=== PATIENT | male | born 1965 | race Caucasian/White ===

== ENCOUNTER → 2017-01-02 | Day surgery (SDC) | payer OTHER ==
[~2017-01-02] VITALS: Ht 182.9 cm; Wt 71.9 kg
[~2017-01-02] MED LIST: *MEPERIDINE 25 MG INJ VIAL PERIprocedural Use ONLY ONE; BACITRACIN TOP OINT 15 GM TUBE ONE; BUPIVACAINE HCL PF 0.5% 30 ML VIAL ONE; CHLORHEXIDINE GLUCONATE 2 % 1 PACK (2 CLOTHS) TOPICAL PRN; DO NOT ADM ANY ANTICOAGULANT DRUGS PRN; INSULIN HUMAN REGULAR 1,000 UNITS/10 ML VIAL SQ PRN; LACTATED RINGER'S 1000 ML IV PRN; LIDOCAINE 0.5%/EPINEPHrine 1:200,000 SOLN 50 ML VIAL ONE; METOPROLOL TARTRATE 25 MG TAB PO PRN; ONDANSETRON HCL 4 MG/2 ML VIAL IV PUSH ONE; POVIDONE IODINE 5% (ANTISEPSIS KIT) 4 APPLICATIONS EACH NARE PRN; PROPOFOL 200 MG/20 ML AMP IV ONE; SODIUM CHLORID 0.9% 500 ML IV PRN
[2017-01-02 10:28] VITALS: BP 104/59; PULSE 81; RESP 18; TEMP 98.3; O2SAT 94
--- NOTE | 2017-01-02 11:18 | EKG ---
Date Performed: 01/02/2017 Time Performed: 06:52:14 PTAGE: 51 years EKG: Sinus rhythm NORMAL ECG NO PREVIOUS TRACING DOCTOR: Timothy Titus Interpretating Date/Time 01/02/2017 11:17:51
--- NOTE | 2017-01-02 18:42 | MP ---
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 PROCEDURE Vinnie-Cut needle biopsies, probably 20 cores, and excisional biopsies of condyloma acuminata SURGEON Dr. Juan Longo ESTIMATED BLOOD LOSS Minimal. OPERATIVE FINDINGS This patient has a massive condyloma for many, many years that has been neglected. The patient underwent almost full excision by me about a year ago at 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 The patient has been lost to followup for the last year to two since that time and recently came back for evaluation. He did not have any insurance. I recommended that he see radiation therapy as this appears to be a large carcinoma of the perineum involving the base of the scrotum and groin and anterior to the anal canal. Radiation therapy, specifically Dr. Belen Connor, saw him and recommended that we get deeper biopsies to ascertain whether this is indeed a carcinoma. For this reason, biopsy was recommended. I did multiple cores of Vinnie-Cut needle biopsy and some excisional biopsies of the surface as well. OPERATIVE TECHNIQUE The patient was placed on the table in the lithotomy position and, after adequate LMA anesthesia, the area was prepped and draped in usual manner and multiple cores of Vinnie-Cut biopsies were taken. This is a very firm, hard lesion that appears to be an invasive carcinoma. Excisional superficial biopsies were taken as well and sent separately. At termination of procedure, Monsel's solution was placed and dressings were applied. Sponge, needle and instrument counts were reported as correct. Estimated blood loss was minimal. The patient tolerated the procedure well and left the operating room in good condition. MD JAVED Ellison/ /9:19 AM /6:33 PM
== END | disposition home or self-care (01) ==
LOC: HSDC 06:33
PROVIDERS: ATTEND Colon & Rectal Surgery
DX: D01.3 Carcinoma in situ of anus and anal canal (principal); A63.0 Anogenital (venereal) warts; Z01.810 Encounter for preprocedural cardiovascular examination
CPT/HCPCS: 00902; 46922; 88305; 93005; J2175; J2405; J3010; J7120; 88304

== ENCOUNTER → 2017-01-26 | Day surgery (SDC) | payer OTHER ==
[~2017-01-26] MED LIST changes: -*MEPERIDINE 25 MG INJ VIAL PERIprocedural Use ONLY ONE; -BACITRACIN TOP OINT 15 GM TUBE ONE; -BUPIVACAINE HCL PF 0.5% 30 ML VIAL ONE; -CHLORHEXIDINE GLUCONATE 2 % 1 PACK (2 CLOTHS) TOPICAL PRN; -DO NOT ADM ANY ANTICOAGULANT DRUGS PRN; -INSULIN HUMAN REGULAR 1,000 UNITS/10 ML VIAL SQ PRN; +LACTATED RINGER'S 1000 ML INJ 1,000 ML ONE; -LACTATED RINGER'S 1000 ML IV PRN; -LIDOCAINE 0.5%/EPINEPHrine 1:200,000 SOLN 50 ML VIAL ONE; -METOPROLOL TARTRATE 25 MG TAB PO PRN; -ONDANSETRON HCL 4 MG/2 ML VIAL IV PUSH ONE; -POVIDONE IODINE 5% (ANTISEPSIS KIT) 4 APPLICATIONS EACH NARE PRN; -SODIUM CHLORID 0.9% 500 ML IV PRN
--- NOTE | 2017-01-26 11:43 | GIPROC ---
[facility] [address] [facility], [address] EGD PROCEDURE REPORT EXAM DATE: 01/26/2017 PATIENT NAME: Sam Hancock MR #: [id number] BIRTHDATE: 1965 ATTENDING: Eva Hall MD ORDER #: [id number] MERCURY PURIFIER: Alirio Grove RN STATUS: outpatient INDICATIONS: The patient is a 51 yr old male here for an EGD due to abnormal PET scan of the GI tract PROCEDURE PERFORMED: EGD w/ biopsy MEDICATIONS: None and Per Anesthesia. TOPICAL ANESTHETIC: CONSENT: The patient understands the risks and benefits of the procedure and understands that these risks include, but are not limited to: sedation, allergic reaction, infection, perforation and/or bleeding. Alternative means of evaluation and treatment include, among others: physical exam, x-rays, and/or surgical intervention. The patient elects to proceed with this endoscopic procedure. medical equipment was checked for proper function. Hand hygiene and appropriate measures for infection prevention was taken. After the risks, benefits and alternatives of the procedure were thoroughly explained, Informed consent was verified, confirmed and timeout was successfully executed by the treatment team. The patient was anesthetized with topical anesthesia and the EC-[id number] ([id number]) endoscope was introduced through the mouth and advanced to the second portion of the duodenum. Retroflexed views revealed a hiatal hernia The gastroscope was then slowly withdrawn and removed. ESOPHAGUS: There was LA Class C esophagitis noted. Multiple biopsies were performed using cold forceps. Sample sent for histology. STOMACH: There was mild gastritis in the gastric antrum. DUODENUM: The duodenal mucosa appeared normal in the bulb and second portion of the duodenum. ADVERSE EVENTS: There were no complications. IMPRESSIONS: 1. There was LA Class C esophagitis noted; multiple biopsies were performed 2. There was mild gastritis in the gastric antrum 3. Normal duodenal mucosa in the bulb and second portion of the duodenum 4. Retroflexed views revealed a hiatal hernia RECOMMENDATIONS: 1. Await biopsy results. Biopsy results will not be ready for 7-10 days. If you don't hear from us in two weeks, call our office for biopsy results. 2. Anti-reflux regimen 3. Prilosec 20 mg po bid PATIENT CONDITION: stable DISPOSITION: Home REPEAT EXAM: Return 8 weeks EGD pending biopsy results Eva Hall MD eSigned: Eva Hall MD 01/26/2017 11:43 AM cc: Nancy Swift [facility] Betsy Peace M.D. PATIENT NAME: Dae Hancocktobias Almazan MR#: [id number]
== END | disposition home or self-care (01) ==
LOC: ESDC 09:59
PROVIDERS: ATTEND Internal Medicine Gastroenterology
DX: R93.3 Abnormal findings on diagnostic imaging of other parts of digestive tract (principal); K20.9 Esophagitis, unspecified; K44.9 Diaphragmatic hernia without obstruction or gangrene; K29.70 Gastritis, unspecified, without bleeding
CPT/HCPCS: 00740; 43239; 88305; 88312; J7120

== ENCOUNTER 2017-01-28 09:56 | Day surgery (SDC) | payer OTHER ==
[2017-01-28 10:16] VITALS: BP 102/66; PULSE 81; RESP 18; TEMP 98; O2SAT 96
[2017-01-28] MEDS ORDERED: LIDOCAINE HCL 1% 20 ML VIAL ONE (11:08)
[2017-01-28 11:10] VITALS: BP 89/56; PULSE 74; RESP 20; TEMP 97.4; O2SAT 97
--- NOTE | 2017-01-28 11:17 | RADRPT ---
EXAM DATE/TIME: 01/28/2017 10:21 [place] COMPARISON: No previous studies available for comparison. EXTERNAL COMPARISON: [facility], PET/CT - TUMOR METABOLISM, Dec 19 2016. INDICATIONS : Enlarged left inguinal canal lymph node. MEDICAL HISTORY : Enlarged left inguinal canal lymph node. Anal cancer. Inguinal hernia. SURGICAL HISTORY : Hernia repair. Colonoscopy. ENCOUNTER: Initial ACUITY: 2 weeks PAIN SCORE: 0/10 LOCATION: Left leg. ORGAN: Left lymph node inguinal canal. SPECIMENS: Four core specimen(s) submitted for pathologic evaluation. DEVICE: 18 gauge Temno needle Post procedure scanning reveals no hematoma or other complication. The possibility does exist that the tissue obtained will be non-diagnostic. If the sample is non-satnam gnostic a repeat biopsy or surgical biopsy may need to be performed. TECHNIQUE: 1. Ultrasound guidance for needle biopsy. 2. Needle biopsy. The risks, benefits and alternatives to the procedure were explained and verbal and written consent w as obtained. The site was prepped in sterile fashion. Full sterile technique was used, including ca p, mask, sterile gloves and gown and a large sterile sheet. Hand hygiene and 2% chlorhexidine and/or betadine/alcohol prep was utilized per protocol for cutaneous antisepsis. The skin and subcutaneous tissues were infiltrated with local anesthetic solution. Sterile gel and sterile probe cover were u tilized for ultrasound guidance. With the patient on the ultrasound table, images were obtained. A needle was advanced into the identified target and the number of specimens as above obtained and kathleen bmitted for pathologic evaluation. The patient tolerated the procedure well and left the ultrasound suite in stable condition. CONCLUSION: Uncomplicated ultrasound guided needle biopsy. Dajuan Granda MD on January 28, 2017 at 11:16 Board Certified Radiologist. This report was verified electronically.
[2017-01-28 11:25] VITALS: BP 101/67; PULSE 75; RESP 20; O2SAT 100
== END 2017-01-28 11:36 | disposition home or self-care (01) ==
LOC: HRIP 09:56 → HRAD 09:56
PROVIDERS: ATTEND Internal Medicine
DX: R59.0 Localized enlarged lymph nodes (principal)
CPT/HCPCS: 38505; 76942; 88305

== ENCOUNTER 2017-04-16 10:58 | Inpatient (IN) | payer OTHER ==
[~2017-04-16] VITALS: Ht 182.9 cm; Wt 68.8 kg
[~2017-04-16 10:58] MED LIST changes: +IBUP200T47 PO; -LACTATED RINGER'S 1000 ML INJ 1,000 ML ONE; +PERC5TAB12 PO; -PROPOFOL 200 MG/20 ML AMP IV ONE
[2017-04-16] MEDS ORDERED: SODIUM CHLORID 0.9% 500 ML IV PRN (11:30)
[2017-04-16] MEDS ORDERED: CHLORHEXIDINE GLUCONATE 2 % 1 PACK (2 CLOTHS) TOPICAL PRN (11:30)
[2017-04-16] MEDS ORDERED: METOPROLOL TARTRATE 25 MG TAB PO PRN (11:30)
[2017-04-16] MEDS ORDERED: POVIDONE IODINE 5% (ANTISEPSIS KIT) 4 APPLICATIONS EACH NARE PRN (11:30)
[2017-04-16] MEDS ORDERED: LACTATED RINGER'S 1000 ML IV PRN (11:30)
[2017-04-16] MEDS ORDERED: ALVIMOPAN 12 MG CAPSULE - On Call PO SCH (11:30)
[2017-04-16 12:19] LABS: AUTOMATED NEUTROPHIL # 26.9 TH/MM3 (1.8-7.7); BASOPHIL # 0.2 TH/MM3 (0-0.2); BASOPHIL % 0.6 % (0.0-2.0); EOSINOPHIL # 0.9 TH/MM3 (0-0.4); EOSINOPHIL % 2.7 % (0.0-4.0); HEMATOCRIT 38.6 % (39.0-51.0); LYMPH % 4.7 % (9.0-44.0); LYMPHOCYTE # 1.5 TH/MM3 (1.0-4.8); MEAN CORPUSCULAR HEMOGLOBIN 29.2 PG (27.0-34.0); MEAN CORPUSCULAR HGB CONC 33.6 % (32.0-36.0); MONO % 8.1 % (0.0-8.0); MONOCYTE # 2.6 TH/MM3 (0-0.9); NEUT % 83.9 % (16.0-70.0); PLATELET COUNT 443 TH/MM3 (150-450); RED BLOOD COUNT 4.44 MIL/MM3 (4.50-5.90)
[2017-04-16 12:53] LABS: BANDS 7 % (0-6); BASOPHILS 1 % (0-2); LYMPHOCYTES 3 % (9-44); MONOCYTES 6 % (0-8); NEUTROPHIL # MANUAL DIFF 28.2 TH/MM3 (1.8-7.7); POLYS (SEG NEUTROPHILS) 81 % (16-70)
[2017-04-16 12:55] LABS: HYPERSEGMENTED POLYS 1+ (NORMAL); TOXIC VACUOLATION PRESENT (NONE SEEN)
[2017-04-16] MEDS ORDERED: BUPIVACAINE/EPINEPHRINE 0.25% PF 30 ML VIAL ONE (13:18)
[2017-04-16] MEDS ORDERED: BACITRACIN TOP OINT 15 GM TUBE ONE (13:18)
[2017-04-16] MEDS ORDERED: ceFAZolin 2 GM PREMIX 50 ML ONE (14:13)
[2017-04-16] MEDS ORDERED: HYDROmorphone HCL PF 2 MG/ML VIAL ONE (14:24)
[2017-04-16] MEDS ORDERED: LIDOCAINE 2%/EPINEPHrine PF 1:200,000 20ML SDV ONE (14:32)
[2017-04-16] MEDS ORDERED: *RESP: ALBUTEROL 2.5 MG/3 ML NEB (PRN) PERIprocedural Use ONLY NEB ONE (15:30)
[2017-04-16] MEDS ORDERED: *MEPERIDINE 25 MG INJ VIAL PERIprocedural Use ONLY ONE (15:31)
[2017-04-16] MEDS ORDERED: HYDROmorphone HCL PCA 6 MG/30 ML IV ONE (15:31)
[2017-04-16] MEDS: D5-LR + KCL 20 MEQ INJ 1,000 ML IV SCH (15:43)
[2017-04-16] MEDS ORDERED: D5-LR + KCL 20 MEQ INJ 1,000 ML ONE (15:43)
[2017-04-16] MEDS ORDERED: DO NOT ADM ANY ANTICOAGULANT DRUGS PRN (16:45)
[2017-04-16] MEDS ORDERED: HYDROmorphone HCL PCA 6 MG/30 ML IV SCH (17:15)
[2017-04-16] MEDS ORDERED: NALOXONE HCL 0.4 MG/ML AMP IV PUSH PRN (17:15)
[2017-04-16 18:22] VITALS: BP 98/53; PULSE 87; RESP 19; TEMP 96.8; O2SAT 90
[2017-04-16] MEDS: PCA - TOTAL MG DILAUDID DELIVERED PER SHIFT SCH (20:44)
[2017-04-16] MEDS: ceFAZolin 1,000 MG/NS 100 ML IV SCH ×2 (20:44)
[2017-04-16] MEDS ORDERED: NICOTINE 21 MG/24 HR PATCH T-DERMAL SCH (21:45)
[2017-04-17] VITALS (7 sets, daily range): BP systolic 88–99; BP diastolic 51–63; PULSE 64–80; RESP 16–20; TEMP 97.1–98; O2SAT 93–97
[2017-04-17] MEDS: D5-LR + KCL 20 MEQ INJ 1,000 ML IV SCH ×2 (02:15→12:29)
[2017-04-17] MEDS: PCA - TOTAL MG DILAUDID DELIVERED PER SHIFT SCH ×3 (06:00→20:32)
[2017-04-17] MEDS: ceFAZolin 1,000 MG/NS 100 ML IV SCH ×6 (06:23→20:32)
[2017-04-17] MEDS ORDERED: INFLUENZA VIRUS VACCINE (QUADRIVALENT) 0.5 ML SYR IM ONE (10:00)
[2017-04-17] MEDS ORDERED: PNEUMOCOCCAL POLYVALENT INJ 25 MCG/0.5 ML SYR IM ONE (10:00)
[2017-04-17] MEDS: NICOTINE 21 MG/24 HR PATCH T-DERMAL SCH (10:29)
[2017-04-17] MEDS: ALVIMOPAN 12 MG CAPSULE - Post-op dosing PO SCH ×2 (10:29→20:31)
[2017-04-17 11:41] LABS: AUTOMATED NEUTROPHIL # 16.2 TH/MM3 (1.8-7.7); BASOPHIL % 0.1 % (0.0-2.0); EOSINOPHIL # 0.1 TH/MM3 (0-0.4); EOSINOPHIL % 0.4 % (0.0-4.0); HEMOGLOBIN 10.6 GM/DL (13.0-17.0); LYMPH % 8.7 % (9.0-44.0); LYMPHOCYTE # 1.7 TH/MM3 (1.0-4.8); MEAN CELL VOLUME 87.4 FL (80.0-100.0); MEAN CORPUSCULAR HEMOGLOBIN 29.9 PG (27.0-34.0); MEAN CORPUSCULAR HGB CONC 34.2 % (32.0-36.0); MEAN PLATELET VOLUME 7.2 FL (7.0-11.0); MONO % 8.5 % (0.0-8.0); MONOCYTE # 1.7 TH/MM3 (0-0.9); NEUT % 82.3 % (16.0-70.0); PLATELET COUNT 375 TH/MM3 (150-450); RED BLOOD COUNT 3.54 MIL/MM3 (4.50-5.90); WHITE BLOOD COUNT 19.7 TH/MM3 (4.0-11.0)
[2017-04-17 12:09] LABS: BICARBONATE 27.5 MEQ/L (21.0-32.0); CALCIUM 8.4 MG/DL (8.5-10.1); CREATININE 0.5 MG/DL (0.60-1.30)
--- NOTE | 2017-04-17 15:44 | HHI.PR ---
Subjective Remarks Pain controlled. Large wound. Dressings changed by me. Objective Vital Signs Date Time Temp Pulse Resp B/P (MAP) Pulse Ox O2 Delivery O2 Flow Rate FiO2 04/17/17 14:00 16 04/17/17 12:00 97.8 68 16 95/52 (66) 96 04/17/17 08:00 97.2 64 16 88/52 (64) 96 04/17/17 06:00 20 04/17/17 00:42 97.7 78 20 99/53 (68) 96 04/17/17 00:12 93 Nasal Cannula 2.00 04/17/17 00:00 98.0 68 20 96/51 (66) 96 04/16/17 20:44 18 04/16/17 18:22 96.8 87 19 98/53 (68) 90 04/16/17 18:00 82 16 94/55 (68) 94 Nasal Cannula 2 04/16/17 17:30 98.0 82 16 94/55 (68) 94 Nasal Cannula 2 04/16/17 16:30 91 16 110/55 (73) 92 Nasal Cannula 2 04/16/17 16:15 96 16 123/58 (79) 94 Nasal Cannula 2 04/16/17 16:00 99 16 125/60 (81) 96 Nasal Cannula 2 04/16/17 15:45 103 16 129/60 (83) 96 Nasal Cannula 2 I/O 04/16/17 04/16/17 04/16/17 04/17/17 04/17/17 04/17/17 07:00 15:00 23:00 07:00 15:00 23:00 Intake Total 300 ml 1000 ml 1100 ml Output Total 325 ml Balance -25 ml 1000 ml 1100 ml Intake IV Total 100 ml 1000 ml 1100 ml Other 200 ml Output Urine Total 325 ml Result Diagram: 04/17/17 1100 04/17/17 1100 Objective Remarks VS-S Rectum: wide excision of deep Condyloma/possibe invasive Squamous cell Cancer. Redressed Assessment and Plan Assessment and Plan Stable POD#1 Admit Wound care Regular diet Await path Possible loop colostomy next week Iftikhar Longo MD Apr 17, 2017 15:44
[2017-04-17] MEDS: REMOVE OLD NICODERM (NICOTINE) PATCH T-DERMAL SCH (20:31)
[2017-04-18] VITALS (7 sets, daily range): BP systolic 90–110; BP diastolic 52–64; PULSE 74–90; RESP 17–20; TEMP 97.5–99.1; O2SAT 93–99
[2017-04-18] MEDS: ceFAZolin 1,000 MG/NS 100 ML IV SCH ×6 (05:02→21:42)
[2017-04-18] MEDS: PCA - TOTAL MG DILAUDID DELIVERED PER SHIFT SCH ×3 (05:02→21:43)
--- NOTE | 2017-04-18 10:01 | HHI.PR ---
Subjective Remarks C/R Surg POD #2 afebrile, VSS voiding to PO Objective - Vital Signs Date Time Temp Pulse Resp B/P (MAP) Pulse Ox O2 Delivery O2 Flow Rate FiO2 04/18/17 08:00 98.6 81 17 100/54 (69) 98 04/18/17 04:47 Nasal Cannula 2.00 Result Diagram: 04/17/17 1100 04/17/17 1100 Objective Remarks PE alert Abd - soft Rectal - clean dressing, min bleeding A/P Assessment and Plan Imp: cont wound care dc IVF PO Butch Aguayo MD Apr 18, 2017 10:01
[2017-04-18] MEDS: NICOTINE 21 MG/24 HR PATCH T-DERMAL SCH (10:08)
[2017-04-18] MEDS: ALVIMOPAN 12 MG CAPSULE - Post-op dosing PO SCH ×2 (10:08→21:42)
--- NOTE | 2017-04-18 18:00 | MP ---
cc: SHANTE LONGO DATE OF SURGERY 04/16/17 PREOPERATIVE DIAGNOSIS Massive condyloma of his perineum. POSTOPERATIVE DIAGNOSIS Massive condyloma of his perineum. PROCEDURE Partial excision of massive condyloma of perineum. ANESTHESIA General endotracheal SURGEON Dr. Juan Longo BIODIESEL PROCESSING TECHNICIAN Dr. Mitchell ESTIMATED BLOOD LOSS 50 ml. OPERATIVE FINDINGS This patient has had a condyloma of his perineum for many years. It is primarily anterior to the anal canal, but somewhat lateral and down in the groin region on both sides of the scrotum. He had excision by me about a year and a half ago at [facility]. At that time, the pathology report was reported as carcinoma in situ. The patient did not follow up well and came back a year later for reevaluation. At that time, we recommended re-excision. The patient did not have insurance. He had finally gotten some sort of the patient assistance at [facility] and has decided to have surgery. I spoke with plastic surgery about him and they agreed to see him but could not see him until April. The patient wanted to get something more definitive done before he loses any insurance coverage that he has. We could not send him to [facility] for further treatment and we referred him to Dr. Stefan Mejia and Dr. Jeri Peace for radiation therapy and chemotherapy. However, because it was not invasive carcinoma they could not do radiation therapy or chemotherapy to him. For this reason, excision of this lesion as much as possible was recommended. We did discuss colostomy and, while he does not want to have a colostomy, he will agree to it if absolutely necessary. I told him that we would try to excise this lesion since he was stooling all over it anyway. It would not be much worse having this excised and still stooling from his rectum. Preoperatively, he had a PET scan and a CT scan that I reviewed with Dr. Floyd Gavin from radiology and it showed that the lesion did abut the urethra as well as the base of the prostate and Dr. Gavin felt that this was most likely malignant even though all biopsies two times have not shown any invasive carcinoma. Nevertheless, we brought him in today for further debridement and excisional biopsy and possible interval colostomy. At surgery, the majority of the lesion was excised from the lateral buttocks region in the subcutaneous plane and removed. The central portion was left which was mostly along the urethra and up to the prostate gland. Most of the lateral areas as mentioned were excised and this included up to the anterior anal canal including some superficial external sphincter as well as posteriorly some anal coccygeal muscle. OPERATIVE TECHNIQUE The patient was placed on the table in the supine position. After adequate general endotracheal anesthesia, a Delacruz catheter was placed. The patient was placed prone on the operating table and the buttocks were taped apart. The area was prepped and draped in usual manner and we used electrocautery to excise this massive condyloma bilaterally including some skin and subcutaneous tissue of the buttocks bilaterally down into the ischiorectal fat. We did not go up along the rectum, but anteriorly we went right to the anoderm and excised it also around the left side of the anus and posteriorly. Anteriorly and in the midline it was excised from around the urethral area, but the urethra was not entered and a good portion in the central portion was left. The groin area was excised as much as possible in the prone position. Further debridement will require lithotomy position. Nevertheless, during this hemostasis was maintained throughout with electrocautery and, once we excised the portion that we were going to excise which included a substantial part of this condyloma probably more than 80%, Monsel's solution was placed on the wounds after hemostasis was obtained with electrocautery and then the area was dressed with 4x4s and ABDs. Sponge, needle and instrument counts were reported as correct. Estimated blood loss was 50 mL. The patient tolerated the procedure well and left the operating room in good condition. REPORT This area, my office in a copy to Dr. Antonio Cowart Dr. Temperature of 1000. INDICATION Thank you MD JAVED Ellison/ /8:38 PM /5:31 PM
[2017-04-18] MEDS: REMOVE OLD NICODERM (NICOTINE) PATCH T-DERMAL SCH (21:00)
[2017-04-19 00:17] VITALS: BP 106/63; PULSE 84; RESP 20; TEMP 98.6; O2SAT 98
[2017-04-19 04:13] VITALS: BP 96/58; PULSE 79; RESP 18; TEMP 98.7; O2SAT 98
[2017-04-19] MEDS: PCA - TOTAL MG DILAUDID DELIVERED PER SHIFT SCH (05:12)
[2017-04-19] MEDS: ceFAZolin 1,000 MG/NS 100 ML IV SCH ×6 (05:12→21:19)
[2017-04-19] MEDS: D5-LR + KCL 20 MEQ INJ 1,000 ML IV SCH ×2 (05:13→15:00)
[2017-04-19 08:00] VITALS: BP 96/55; PULSE 77; RESP 18; TEMP 98.5; O2SAT 96
[2017-04-19] MEDS: NICOTINE 21 MG/24 HR PATCH T-DERMAL SCH (08:14)
[2017-04-19] MEDS: ALVIMOPAN 12 MG CAPSULE - Post-op dosing PO SCH ×2 (08:14→21:19)
[2017-04-19] MEDS: REMOVE OLD NICODERM (NICOTINE) PATCH T-DERMAL SCH (08:15)
--- NOTE | 2017-04-19 09:29 | HHI.PR ---
Subjective Remarks C/R Surg POD #3 afebrile, VSS voiding to PO Objective - Vital Signs Date Time Temp Pulse Resp B/P (MAP) Pulse Ox O2 Delivery O2 Flow Rate FiO2 04/19/17 08:00 98.5 77 18 96/55 (69) 96 04/18/17 11:48 Nasal Cannula 2.00 Result Diagram: 04/17/17 1100 04/17/17 1100 Objective Remarks PE alert Abd - soft Rectal - clean dressing, min bleeding, +BM A/P Assessment and Plan Imp: cont wound care dc IVF PO Butch Aguayo MD Apr 19, 2017 09:29
[2017-04-19] MEDS: oxyCODONE/ACETAMINOPHEN 5 MG/325 MG TAB PO PRN ×3 (11:52→21:19)
[2017-04-19 12:00] VITALS: BP 95/63; PULSE 86; RESP 16; TEMP 97.8; O2SAT 96
[2017-04-19 20:00] VITALS: BP 104/62; PULSE 86; RESP 16; TEMP 98.2; O2SAT 94
[2017-04-20] MEDS: oxyCODONE/ACETAMINOPHEN 5 MG/325 MG TAB PO PRN ×6 (02:29→22:23)
[2017-04-20 04:00] VITALS: BP 106/59; PULSE 90; RESP 16; TEMP 98.5; O2SAT 96
[2017-04-20] MEDS: ceFAZolin 1,000 MG/NS 100 ML IV SCH ×6 (06:27→14:55)
[2017-04-20 07:20] LABS: AUTOMATED NEUTROPHIL # 14.1 TH/MM3 (1.8-7.7); BASOPHIL # 0.1 TH/MM3 (0-0.2); BASOPHIL % 0.6 % (0.0-2.0); HEMATOCRIT 32.1 % (39.0-51.0); HEMOGLOBIN 10.8 GM/DL (13.0-17.0); LYMPH % 8.8 % (9.0-44.0); LYMPHOCYTE # 1.7 TH/MM3 (1.0-4.8); MEAN CELL VOLUME 87.5 FL (80.0-100.0); MEAN CORPUSCULAR HEMOGLOBIN 29.3 PG (27.0-34.0); MEAN CORPUSCULAR HGB CONC 33.5 % (32.0-36.0); MONO % 11.6 % (0.0-8.0); MONOCYTE # 2.2 TH/MM3 (0-0.9); PLATELET COUNT 472 TH/MM3 (150-450); RED BLOOD COUNT 3.67 MIL/MM3 (4.50-5.90); RED CELL DISTRIBUTION WIDTH 13.5 % (11.6-17.2); WHITE BLOOD COUNT 19.1 TH/MM3 (4.0-11.0)
[2017-04-20 07:48] LABS: CALCIUM 8.3 MG/DL (8.5-10.1); CREATININE 0.6 MG/DL (0.60-1.30)
[2017-04-20 08:00] VITALS: BP 92/54; PULSE 73; RESP 17; TEMP 97.5; O2SAT 96
[2017-04-20 08:33] VITALS: O2SAT 96
[2017-04-20] MEDS: NICOTINE 21 MG/24 HR PATCH T-DERMAL SCH (09:00)
[2017-04-20] MEDS: ALVIMOPAN 12 MG CAPSULE - Post-op dosing PO SCH ×2 (09:08→19:32)
[2017-04-20] MEDS: REMOVE OLD NICODERM (NICOTINE) PATCH T-DERMAL SCH (09:17)
--- NOTE | 2017-04-20 09:38 | HHI.PR ---
Subjective Remarks C/R Surg POD #4 afebrile, VSS voiding to PO stools better Objective - Vital Signs Date Time Temp Pulse Resp B/P (MAP) Pulse Ox O2 Delivery O2 Flow Rate FiO2 04/20/17 08:33 96 21 04/20/17 08:00 97.5 73 17 92/54 (67) 04/18/17 11:48 Nasal Cannula 2.00 Result Diagram: 04/20/1765404/20/1755 Objective Remarks PE alert Abd - soft Rectal - clean dressing, min bleeding, +BM A/P Assessment and Plan Imp: cont wound care dc IVF PO meds dc plans Butch Haines MD Apr 20, 2017 09:38
[2017-04-20] MEDS: D5-LR + KCL 20 MEQ INJ 1,000 ML IV SCH (11:00)
[2017-04-20 12:00] VITALS: BP 90/51; PULSE 81; RESP 17; TEMP 96.6; O2SAT 95
[2017-04-20 16:00] VITALS: BP 100/55; PULSE 83; RESP 17; TEMP 96.9; O2SAT 96
[2017-04-20 20:00] VITALS: BP 108/63; PULSE 79; RESP 18; TEMP 97.6; O2SAT 100
[2017-04-21] VITALS: BP 94/51; PULSE 89; RESP 18; TEMP 98; O2SAT 95
[2017-04-21] MEDS: oxyCODONE/ACETAMINOPHEN 5 MG/325 MG TAB PO PRN ×5 (03:15→21:04)
[2017-04-21] MEDS: D5-LR + KCL 20 MEQ INJ 1,000 ML IV SCH (07:00)
[2017-04-21 08:00] VITALS: BP 105/55; PULSE 86; RESP 17; TEMP 98.1; O2SAT 95
[2017-04-21] MEDS: NICOTINE 21 MG/24 HR PATCH T-DERMAL SCH (09:07)
[2017-04-21] MEDS: ALVIMOPAN 12 MG CAPSULE - Post-op dosing PO SCH ×2 (09:07→23:02)
--- NOTE | 2017-04-21 11:23 | HHI.PR ---
Subjective Remarks Pain somewhat controlled. Large wound. Dressings changed by me. Objective Vital Signs Date Time Temp Pulse Resp B/P (MAP) Pulse Ox O2 Delivery O2 Flow Rate FiO2 04/21/17 08:00 98.1 86 17 105/55 (72) 95 04/21/17 00:00 98.0 89 18 94/51 (65) 95 04/20/17 20:00 97.6 79 18 108/63 (78) 100 04/20/17 16:00 96.9 83 17 100/55 (70) 96 04/20/17 15:54 2 04/20/17 12:00 96.6 81 17 90/51 (64) 95 I/O 04/20/17 04/20/17 04/20/17 04/21/17 04/21/17 04/21/17 07:00 15:00 23:00 07:00 15:00 23:00 Intake Total 2068 ml 100 ml 835 ml Output Total 1500 ml 925 ml 1200 ml Balance 568 ml 100 ml -90 ml -1200 ml Intake Oral 1260 ml 835 ml IV Total 808 ml 100 ml Output Urine Total 1500 ml 925 ml 1200 ml # Voids 1 # Bowel Movements 0 Result Diagram: 04/20/17 0655 04/20/17 0655 Objective Remarks VS-S Rectum: wide excision of deep Condyloma/possible invasive Squamous cell Cancer. Redressed. Mid portion of wound with island of remaining Condyloma over urethra. Assessment and Plan Assessment and Plan Stable POD#5 Stooling Qday or Qod Continue Wound care wet to dry Regular diet Await path.? later today or tomorrow If CA will require RT and probable Colostomy for comfort. If still benign, will consult Urology for assistance in further excision off of Urethra and Prostate and possible Colostomy. Iftikhar Longo MD Apr 21, 2017 11:23
[2017-04-21 12:00] VITALS: BP 115/56; PULSE 89; RESP 17; TEMP 98; O2SAT 98
[2017-04-21 16:00] VITALS: BP 107/66; PULSE 82; RESP 17; TEMP 97; O2SAT 95
[2017-04-21 20:00] VITALS: BP 95/53; PULSE 95; RESP 20; TEMP 98.5; O2SAT 97
[2017-04-21] MEDS: REMOVE OLD NICODERM (NICOTINE) PATCH T-DERMAL SCH (21:00)
[2017-04-22] VITALS: BP 102/52; PULSE 75; RESP 20; TEMP 98.2; O2SAT 96
[2017-04-22] MEDS: oxyCODONE/ACETAMINOPHEN 5 MG/325 MG TAB PO PRN ×5 (04:25→23:07)
[2017-04-22 08:00] VITALS: BP 92/52; PULSE 74; RESP 21; TEMP 97.7; O2SAT 96
--- NOTE | 2017-04-22 09:04 | HHI.PR ---
Subjective Remarks Pain better controlled. Large wound. Seen by Lydia Mejia and Kobi. Objective Vital Signs Date Time Temp Pulse Resp B/P (MAP) Pulse Ox O2 Delivery O2 Flow Rate FiO2 04/22/17 00:00 98.2 75 20 102/52 (69) 96 04/21/17 20:00 98.5 95 20 95/53 (67) 97 04/21/17 16:00 97.0 82 17 107/66 (80) 95 04/21/17 12:00 98.0 89 17 115/56 (75) 98 I/O 04/21/17 04/21/17 04/21/17 04/22/17 04/22/17 04/22/17 07:00 15:00 23:00 07:00 15:00 23:00 Intake Total 1662 ml 600 ml Output Total 1200 ml 1050 ml 1200 ml Balance -1200 ml 612 ml -600 ml Intake Oral 1662 ml 600 ml Output Urine Total 1200 ml 1050 ml 1200 ml # Voids 1 # Bowel Movements 0 0 Result Diagram: 04/20/17 0655 04/20/1755 Objective Remarks VS-S Rectum: wide excision of deep Condyloma with invasive Squamous cell Cancer. Mid portion of wound with island of remaining Condyloma over urethra. Assessment and Plan Assessment and Plan Stable POD#6- Invasive Squamous cell CA Stooling Qday or Qod Continue Wound care wet to dry Regular diet Tentative plans for Colostomy tomorrow,but will D/W Lydia Mejia and Kobi for their plans first. Iftikhar Longo MD Apr 22, 2017 09:04
[2017-04-22] MEDS: NICOTINE 21 MG/24 HR PATCH T-DERMAL SCH (09:29)
[2017-04-22] MEDS: ALVIMOPAN 12 MG CAPSULE - Post-op dosing PO SCH ×2 (09:29→23:05)
[2017-04-22 12:00] VITALS: BP 102/57; PULSE 75; RESP 17; TEMP 97.6; O2SAT 94
--- NOTE | 2017-04-22 13:17 | MB ---
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 BRIEF HISTORY This gentleman has been previously seen by me in consultation dating back to November of 2016. He is a 52-year-old gentleman who has had a history of extensive condyloma involving the perianal region extending onto his scrotum. He has had previous excisions and biopsies and none of which showed evidence of malignancy, although there was concern by all his treating physicians that there may be some evidence of cancer. He has been seen by Dr. Waters and Dr. Longo and we have had extensive discussions regarding his management. We did attempt to have him referred to a tertiary care center but because of insurance issues he was not able to coordinate that care. He has gone on to have a extensive re-excision of his condyloma on 04/16/[address] Longo's care. The final pathology report indicates invasive moderately differentiated squamous cell carcinoma arising in a background of condyloma acuminata. The specimen demonstrates fragments of tissue ranging up to 11-1/2 cm in greatest dimension. These are extensively involved by condyloma acuminata with areas of invasive squamous cell carcinoma. The surgical margins could not be adequately assessed because of the fragmented nature of the tumor. This gentleman has had previous diagnostic imaging including a PET scan performed in November. This showed no evidence of metastatic disease. There was focal areas of abnormal tracer accumulation in the inguinal katia chains bilaterally. On the right there was a 2.3 cm node with an SUV of 3.2, on the left 1.6 cm node with an SUV of 2.9. The perineum and associated tissue had an SUV of 16.5. He has since had a biopsy of his inguinal lymph node which was nondiagnostic. As well, there was an area of uptake that was abnormal in the esophagus and EGD with biopsy was performed showing no evidence of malignancy. I have had discussions with Dr. Longo today regarding his recent surgery. He has had an extensive, although incomplete excision because of the extension of disease to the scrotum. On reviewing his radiology Dr. Longo indicates there is disease extending very close to the urethra and local excision of this was not performed. Currently the patient is in the hospital recovering from his surgery. He is having daily dressings. He has pain associated with his recent surgery. PAST MEDICAL AND SURGICAL HISTORY Includes: 1. Right inguinal hernia repair in 2016. 2. He has had a previous history of bronchitis. 3. He has had an EGD with negative biopsies. 4. He has had a biopsy of the groin node which was nondiagnostic. ALLERGIES None. FAMILY HISTORY AND SOCIAL HISTORY He has two children who live locally. He is currently not . He is initially from [place]. He has worked as an ase certified technician. He does smoke two packages of cigarettes a day and has done so for 25 years. He drinks beer on a regular basis. REVIEW OF SYSTEMS This is well-documented in the hospital chart. CONSTITUTIONAL: He denies constitutional complaints of fever, sweats or weight loss. ALLERGIES: None. HEENT: No complaints. NECK: No pain. SKIN: No other lesions apart from perineum. BREASTS: No lumps or nodules. CARDIOVASCULAR: Denies chest pain, swollen ankles or palpitations. RESPIRATORY: Denies cough, sputum or hemoptysis. GASTROINTESTINAL: He has perineal pain. No true rectal pain. No bleeding preoperatively. MUSCULOSKELETAL: No bone pain. NEUROLOGIC: Denies abnormal gait, insomnia, memory loss. ENDOCRINE: Denies diabetes or thyroid disease. PHYSICAL EXAMINATION GENERAL: A limited exam today reveals an alert, oriented gentleman who is lying comfortably in bed. VITAL SIGNS: He was afebrile with a pulse of 74 and regular, respiratory rate of 21, BP of 92/52 and O2 sat on room air was 96%. HEENT: There is no jaundice. Conjunctivae and eyelids are normal. He had full EOMs. No adenopathy in his head and neck. LUNGS: His lung smith were clear. HEART: Heart sounds were normal. ABDOMEN: No abdominal masses or tenderness. He has a dressing with Depends and this was not taken down today. There is no ankle edema. He is moving all limbs normally. I have discussed his care today with Dr. Waters his medical oncologist as well as Dr. Longo. He will require a combination of radiation treatment and chemotherapy. Unfortunately, with the extent of disease and the debulking procedure that was performed, it is anticipated that he is going to take some time to heal. In general, we would be wanting to hold off radiation and chemotherapy until there was adequate healing. On the other hand, we are going to be hesitant to delay treatment for too long of a time period, which will be a dilemma we will need to resolve as we move forward and see how he does heal. I have discussed with Dr. Longo this gentleman, it would be reasonable for this gentleman to undergo a bypass colostomy at this point as we believe treatment will be very difficult for him as his disease is centered on the perineum, diarrhea would be a big issue and as such this will keep the dry cleaner apprentice and prevent unnecessary complications. As well because of the wound healing issues we have discussed above, Dr. Longo has indicated he will consider having a plastic surgeon see this gentleman to see if there is anything that they would recommend to promote coverage of the area that would then allow us to proceed with treatment sooner rather than later. All of this has been discussed with the patient. I have discussed radiation treatment in detail. We discussed the local side effects with him. He is anxious to be treated. He is very hopeful that he will be cured and we have discussed this in some detail. I have told him that if a combination of radiation treatment and chemotherapy does not cure this that he will still have the option of surgery in the future as well. We will continue to follow him and coordinate his care with his other physicians. MD MONICA Singh/MINH /11:02 AM /12:28 PM
[2017-04-22] MEDS ORDERED: HEPARIN SODIUM - SQ 10,000 UNITS/ML VIAL SQ ONE ×2 (13:30→22:00)
[2017-04-22 16:00] VITALS: BP 97/59; PULSE 95; RESP 21; TEMP 98.6; O2SAT 91
[2017-04-22] MEDS ORDERED: MAGNESIUM HYDROXIDE SUSP 30 ML CUP PO ONE (16:00)
[2017-04-22 20:00] VITALS: BP 96/54; PULSE 97; RESP 18; TEMP 96.7; O2SAT 98
[2017-04-22] MEDS: REMOVE OLD NICODERM (NICOTINE) PATCH T-DERMAL SCH (21:00)
[2017-04-23] VITALS: BP_SYST 77; BP_SYST 95; BP_DIAS 45; BP_DIAS 55; PULSE 83; RESP 20; TEMP 98.2; O2SAT 97
[2017-04-23 04:00] VITALS: BP 102/56; PULSE 82; RESP 20; TEMP 98.3; O2SAT 97
[2017-04-23] MEDS: oxyCODONE/ACETAMINOPHEN 5 MG/325 MG TAB PO PRN ×5 (04:10→21:49)
[2017-04-23] MEDS ORDERED: HEPARIN SODIUM - SQ 10,000 UNITS/ML VIAL SQ ONE (06:00)
[2017-04-23] MEDS: ALVIMOPAN 12 MG CAPSULE - Post-op dosing PO SCH ×2 (07:52→21:48)
[2017-04-23] MEDS: NICOTINE 21 MG/24 HR PATCH T-DERMAL SCH (07:52)
[2017-04-23 08:00] VITALS: BP 103/56; PULSE 77; RESP 19; TEMP 97.3; O2SAT 96
[2017-04-23 08:56] LABS: PROTHROMBIN TIME - PATIENT 10.5 SEC (9.8-11.6)
[2017-04-23] MEDS ORDERED: IOHEXOL 350 MG/ML 10 ML VIAL (for RAD DIAG) IVCONTRAST ONE (10:28)
--- NOTE | 2017-04-23 11:05 | RADRPT ---
EXAM DATE/TIME: 04/23/2017 10:15 [place] COMPARISON: No previous studies available for comparison. INDICATIONS : Pre-operative for bypass colostomy. Evaluate the patency of the right deep inferior epigastric arter y and vein. IV CONTRAST: 72 cc Omnipaque 350 (iohexol) IV ORAL CONTRAST: No oral contrast ingested. RADIATION DOSE: 12.99 CTDIvol (mGy) MEDICAL HISTORY : Anal condyloma SURGICAL HISTORY : Inguinal hernia repair. Anal mass excision ENCOUNTER: Initial ACUITY: 1 day PAIN SCALE: 0/10 LOCATION: anterior TECHNIQUE: Volumetric scanning was performed using a multi-row detector CT scanner. The data was post processed with a variety of visualization algorithms including full volume maximum intensity projection, multi -planar sliding thin slab reformation, curved planar reformation, and surface rendering techniques. Using automated exposure control and adjustment of the mA and/or kV according to patient size, radiat ion dose was kept as low as reasonably achievable to obtain optimal diagnostic quality images. DICOM format image data is available electronically for review and comparison. FINDINGS: ABDOMINAL AORTA: The lumen is smooth without significant narrowing or aneurismal dilation. Moderate eccentric calcifie d plaque is identified. The proximal celiac and superior mesenteric arteries are patent and normal in diameter. There are solitary renal arteries bilaterally without gross abnormality. BIFURCATION: Normal. RIGHT PELVIS: The right inferior epigastric artery and vein are patent. There is focal plaque in the right common f emoral artery adjacent to the arterial vascular origin however the origin appears widely patent. The right common iliac, internal iliac and external iliac vessels are patent without luminal irr egularity. LEFT PELVIS: The left inferior epigastric artery and vein are patent. The left common iliac, internal iliac and external iliac vessels are patent and without luminal irregularity. Miscellaneous: Simple cysts are identified in the right and left hepatic lobes. There are no suspicious space-occupy ing lesions. Anal thickening with infiltrating mass extending into the perineum is identified. Scattered amou nt retained stool is present throughout the colon. CONCLUSION: 1. Patent inferior epigastric arteries and veins. 2. Anal mass with perineum infiltration. 3. Calcific catheter scrubbed disease of the abdominal aorta without evidence of stenosis or aneurysm . Saul Levine MD on April 23, 2017 at 10:44 Board Certified Radiologist. This report was verified electronically.
[2017-04-23 12:00] VITALS: BP 98/53; PULSE 81; RESP 21; TEMP 98.4; O2SAT 96
--- NOTE | 2017-04-23 13:29 | HHI.PR ---
Subjective Remarks Pain better controlled. Large wound. Seen by Lydia Mejia and Kobi. CT noted. Surgery cancelled today due to another emergency. Objective Vital Signs Date Time Temp Pulse Resp B/P (MAP) Pulse Ox O2 Delivery O2 Flow Rate FiO2 04/23/17 12:00 98.4 81 21 98/53 (68) 96 04/23/17 08:00 97.3 77 19 103/56 (72) 96 04/23/17 04:00 98.3 82 20 102/56 (71) 97 04/23/17 00:00 98.2 83 20 77/45 (56) 97 95/55 (68) 04/22/17 20:00 96.7 97 18 96/54 (68) 98 04/22/17 16:00 98.6 95 21 97/59 (72) 91 I/O 04/22/17 04/22/17 04/22/17 04/23/17 04/23/17 04/23/17 07:00 15:00 23:00 07:00 15:00 23:00 Intake Total 600 ml 720 ml 600 ml Output Total 1200 ml 400 ml Balance -600 ml 320 ml 600 ml Intake Oral 600 ml 720 ml 600 ml Output Urine Total 1200 ml 400 ml # Voids 1 3 2 # Bowel Movements 0 0 0 Result Diagram: 04/20/1765404/20/17654 Objective Remarks VS-S Rectum: wide excision of deep Condyloma with invasive Squamous cell Cancer. Mid portion of wound with island of remaining Condyloma over urethra. Assessment and Plan Assessment and Plan Stable POD#7- Invasive Squamous cell CA No BM for 2 days-Will give Mg Citrate today Continue Wound care wet to dry Regular diet Tentative plans for Colostomy and further debridement tomorrow afternoon. Iftikhar Longo MD Apr 23, 2017 13:29
[2017-04-23] MEDS ORDERED: MAGNESIUM CITRATE SOLN 300 ML BTL PO ONE (14:30)
[2017-04-23] MEDS: D5-LR + KCL 20 MEQ INJ 1,000 ML IV SCH ×2 (14:44→21:53)
[2017-04-23 20:00] VITALS: BP 92/53; PULSE 90; RESP 18; TEMP 97.7; O2SAT 91
[2017-04-23] MEDS: REMOVE OLD NICODERM (NICOTINE) PATCH T-DERMAL SCH (21:00)
[2017-04-24] VITALS: BP 102/56; PULSE 78; RESP 17; TEMP 98; O2SAT 91
[2017-04-24] MEDS ORDERED: LACTATED RINGER'S 1000 ML IV PRN (02:15)
[2017-04-24] MEDS: oxyCODONE/ACETAMINOPHEN 5 MG/325 MG TAB PO PRN ×3 (02:17→10:04)
[2017-04-24] MEDS: D5-LR + KCL 20 MEQ INJ 1,000 ML IV SCH ×3 (06:11→18:00)
[2017-04-24 08:00] VITALS: BP 99/51; PULSE 73; RESP 17; TEMP 97.6; O2SAT 97
[2017-04-24] MEDS: NICOTINE 21 MG/24 HR PATCH T-DERMAL SCH (09:00)
[2017-04-24] MEDS: FLUCONAZOLE 200 MG TAB PO SCH (09:06)
[2017-04-24 12:00] VITALS: BP 103/55; PULSE 77; RESP 17; TEMP 97.5; O2SAT 97
[2017-04-24] MEDS ORDERED: ceFAZolin INJ 1,000 MG VIAL IV ONE (12:00)
[2017-04-24] MEDS ORDERED: LACTATED RINGER'S 1000 ML INJ 1,000 ML IV ONE (12:00)
[2017-04-24] MEDS ORDERED: GLYCOPYRROLATE 1 MG/5 ML SYRINGE IV PUSH ONE (12:00)
[2017-04-24] MEDS ORDERED: LIDOCAINE HCL 1% PF 5 ML SYRINGE OTHER ONE (12:00)
[2017-04-24] MEDS ORDERED: ONDANSETRON HCL 4 MG/2 ML VIAL IV ONE (12:00)
[2017-04-24] MEDS ORDERED: ROCURONIUM INJ 50 MG/5 ML SYRINGE IV PUSH ONE (12:00)
[2017-04-24] MEDS ORDERED: PROPOFOL 200 MG/20 ML AMP IV ONE (12:00)
[2017-04-24] MEDS ORDERED: SODIUM CHLORIDE 0.9% 20 ML VIAL IV ONE (12:00)
[2017-04-24] MEDS ORDERED: NEOSTIGMINE 5 MG/5 ML SYRINGE IV PUSH ONE (12:00)
[2017-04-24] MEDS ORDERED: DEXAMETHASONE SOD PHOS 4 MG/ML VIAL IV ONE (12:00)
--- NOTE | 2017-04-24 13:10 | PD.CONS ---
HPI Service Urology Consult Requested By Dr. 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 The tumor mass was not completely excised during this recent resection and there was tumor left adherent to the prostate and urethra. Patient is scheduled to undergo further resection of the tumor mass on April 24 and a urology consult was placed to assist with resection of the tumor mass extending to the the prostate and urethra. The patient did have a PET scan in November of this year that failed to demonstrate any evidence of metastatic disease. Patient also status post inguinal lymph node biopsies which were nondiagnostic. Patient was evaluated by radiation oncology and the plan is to proceed with radiation therapy after debulking of this tumor mass. Review of Systems Constitutional: DENIES: Fever, Chills Genitourinary: DENIES: Hematuria, Dysuria Musculoskeletal: DENIES: Back pain Except as stated in HPI: all other systems reviewed are Neg Past Family Social History Past Medical History History right inguinal hernia History bronchitis Past Surgical History Right inguinal herniorrhaphy 2016 Status post EGD with negative biopsies Status post right inguinal lymph node biopsies Reported Medications Refer to EMR Allergies: Coded Allergies: morphine (Verified Adverse Reaction, Severe, ABDOMINAL CRAMPS/DIARRHEA, ) Active Ordered Medications Refer to EMR Family History Reviewed and noncontributory Social History Smoker of 2 packs per day 25 years Moderate alcohol use Not Physical Exam Vital Signs Date Time Temp Pulse Resp B/P (MAP) Pulse Ox O2 Delivery O2 Flow Rate FiO2 04/24/17 12:00 97.5 77 17 103/55 (71) 97 04/24/17 11:04 18 04/24/17 08:00 97.6 73 17 99/51 (67) 97 04/24/17 00:00 98.0 78 17 102/56 (71) 91 04/23/17 20:00 97.7 90 18 92/53 (66) 91 Physical Exam GENERAL: This is a well-nourished, well-developed patient, in no apparent distress. SKIN: No rashes, ecchymoses or lesions. Cool and dry. HEAD: Atraumatic. Normocephalic. No temporal or scalp tenderness. EYES: Pupils equal round and reactive. Extraocular motions intact. No scleral icterus. No injection or drainage. ENT: Nose without bleeding, purulent drainage or septal hematoma. Throat without erythema, tonsillar hypertrophy or exudate. Uvula midline. Airway patent. NECK: Trachea midline. No JVD or lymphadenopathy. Supple, nontender, no meningeal signs. GASTROINTESTINAL: Abdomen soft, non-tender, nondistended. No hepato-splenomegaly , or palpable masses. No guarding. GENITOURINARY: To be fully evaluated under general anesthesia. MUSCULOSKELETAL: Extremities without clubbing, cyanosis, or edema. No joint tenderness, effusion, or edema noted. No calf tenderness. Negative Homans sign bilaterally. NEUROLOGICAL: Awake and alert. Cranial nerves II through XII intact. Motor and sensory grossly within normal limits. Five out of 5 muscle strength in all muscle groups. Normal speech. Result Diagram: 04/20/17 0655 04/20/17 0655 Imaging Last Impressions Abdomen/Pelvis CT 04/23/17 0900 Signed Impressions: Service Date/Time: March 10:15 - CONCLUSION: 1. Patent inferior epigastric arteries and veins. 2. Anal mass with perineum infiltration. 3. Calcific catheter scrubbed disease of the abdominal aorta without evidence of stenosis or aneurysm. Saul Levine MD Assessment and Plan Assessment and Plan Urologic impression: Status post partial resection of Condyloma acuminata/ squamous cell carcinoma involving the perineum (with extension to anus and scrotum) as well as involvement of the prostate and bulbar urethra. Plan: #1 Will be available to assist with resection of tumor mass off of the prostate and bulbar urethra later today if needed. #2 patient made aware of risks of possible urethral injury during resection of the tumor mass. Valentin Mendoza MD Apr 24, 2017 13:10
[2017-04-24] MEDS ORDERED: ACETAMINOPHEN 1000 MG/100 ML 100 ML IV ONE (14:44)
[2017-04-24 14:58] VITALS: PULSE 76
[2017-04-24] MEDS ORDERED: metroNIDAZOLE 500 MG INJ 100 ML IV ONE (15:57)
[2017-04-24] MEDS: metroNIDAZOLE 500 MG INJ 100 ML IV SCH (15:58)
[2017-04-24] MEDS: ceFAZolin 2 GM PREMIX 50 ML IV SCH (15:58)
[2017-04-24] MEDS ORDERED: DO NOT ADM ANY ANTICOAGULANT DRUGS PRN (17:25)
[2017-04-24] MEDS ORDERED: NALOXONE HCL 0.4 MG/ML AMP IV PUSH PRN (17:30)
[2017-04-24] MEDS ORDERED: MORPHINE SULFATE 30 MG/30 ML PCA IV SCH (17:30)
[2017-04-24] MEDS ORDERED: Post-op Orders (for Pharmacy) XX ONE (17:30)
[2017-04-24] MEDS ORDERED: ENALAPRILAT 1.25 MG/ML VIAL IV PUSH PRN (17:30)
[2017-04-24] MEDS ORDERED: POTASSIUM CHLOR 20 MEQ PREMIX 100 ML IV PRN (17:30)
[2017-04-24] MEDS ORDERED: SODIUM CHLORIDE 0.9% FLUSH 10 ML FLUSH IV FLUSH PRN (17:30)
[2017-04-24] MEDS ORDERED: POTASSIUM CHLOR 40 MEQ PREMIX 100 ML IV PRN (17:30)
[2017-04-24] MEDS ORDERED: ZOLPIDEM TARTRATE 5 MG TAB PO PRN (17:30)
[2017-04-24] MEDS ORDERED: MIDAZOLAM HCL 2 MG/2 ML VIAL ONE (17:33)
[2017-04-24] MEDS ORDERED: *HYDROmorphone PF 1 MG VIAL PERIprocedural Use ONLY ONE ×2 (17:35→18:20)
[2017-04-24] MEDS ORDERED: HYDROmorphone HCL PCA 6 MG/30 ML IV ONE (17:53)
[2017-04-24] MEDS ORDERED: PCA - TOTAL MG MORPHINE DELIVERED PER SHIFT SCH (18:00)
[2017-04-24] MEDS: METOCLOPRAMIDE HCL 10 MG/2 ML VIAL IVS SCH ×2 (18:00→23:15)
[2017-04-24 18:01] LABS: AUTOMATED NEUTROPHIL # 26.3 TH/MM3 (1.8-7.7); BASOPHIL # 0.1 TH/MM3 (0-0.2); BASOPHIL % 0.3 % (0.0-2.0); EOSINOPHIL # 0.4 TH/MM3 (0-0.4); EOSINOPHIL % 1.3 % (0.0-4.0); HEMATOCRIT 32.4 % (39.0-51.0); HEMOGLOBIN 10.7 GM/DL (13.0-17.0); LYMPH % 4.8 % (9.0-44.0); LYMPHOCYTE # 1.4 TH/MM3 (1.0-4.8); MEAN CELL VOLUME 88.7 FL (80.0-100.0); MEAN CORPUSCULAR HEMOGLOBIN 29.3 PG (27.0-34.0); MEAN PLATELET VOLUME 6.6 FL (7.0-11.0); MONO % 3.8 % (0.0-8.0); MONOCYTE # 1.1 TH/MM3 (0-0.9); NEUT % 89.8 % (16.0-70.0); PLATELET COUNT 596 TH/MM3 (150-450); RED BLOOD COUNT 3.65 MIL/MM3 (4.50-5.90); RED CELL DISTRIBUTION WIDTH 13.6 % (11.6-17.2); WHITE BLOOD COUNT 29.4 TH/MM3 (4.0-11.0)
--- NOTE | 2017-04-24 18:10 | MP ---
cc: YOLA GALAVIZ MD, MD,Juan SHANTE DATE OF SURGERY: 04/24/2017. PREOPERATIVE DIAGNOSIS: Large fungating condyloma with squamous cell carcinoma. POSTOPERATIVE DIAGNOSIS: Large fungating condyloma with squamous cell carcinoma. OPERATIVE PROCEDURE PERFORMED: 1. Debridement of remainder of condyloma acuminata and squamous cell carcinoma. 2. Fully diverting loop sigmoid colostomy. SURGEON: Iftikhar Longo M.D. 8TH GRADE TEACHER: Dajuan Mitchell MD. ANESTHESIA: General endotracheal anesthesia. ESTIMATED BLOOD LOSS: 50 cc. OPERATIVE FINDINGS: This patient has had a large condyloma anterior to his anus and posterior to his scrotum and up into his groin for many years. Most of it was excised last week and the remainder of it was excised and the groin and the central portion of the condyloma and squamous cell carcinoma overlying the scrotum and the urethra today. After the debridement was fully accomplished and there was no remaining condyloma or squamous cell carcinoma, the patient was reprepped and draped and new instruments were used and a fully diverting loop sigmoid colostomy was done. OPERATIVE TECHNIQUE: The patient was placed on the table in the supine position. After adequate general endotracheal anesthesia, the legs were placed in the lithotomy position. Our attention was turned to the base of the scrotum and the lateral areas of the groin and the central portion of the previous wound, and using electrocautery, the condyloma was excised down around the posterior portion of the scrotum up into the groin bilaterally and then down around the anterior anus preserving the anorectal ring and the anal muscles. All of the condyloma was excised down to the subcutaneous tissue. Once this was done, Monsel's solution was placed on the wounds to finish obtaining hemostasis and then fluffs and dressings were applied. Next our attention was turned to the abdomen and the patient was reprepped and draped and new instruments were used and a previously marked colostomy site in the left lower quadrant was identified and in the lateral portion of the rectus muscle and a small circular incision was made and carried down through the subcutaneous tissue and then the anterior rectus sheath was incised vertically and then the rectus muscle was split vertically and the posterior rectus sheath was opened. The sigmoid colon was seen in the left colic gutter and it was quite redundant and pulled up out of the abdomen easily. A window was made in the mesentery with electrocautery and the distal portion of the sigmoid colon was stapled closed with a TX 30 blue staple height stapler. Prior to that, Dr. Mitchell did a rigid sigmoidoscopy and insufflated air to make sure this was the distal end of the colon. Next the colostomy was created inverting in a Tamika fashion and it was matured with interrupted 3-0 Vicryl sutures and a 57-mm appliance was placed. At the termination of the procedure, sponge, needle and instrument counts were reported as correct. Estimated blood loss was 50 mL. The patient tolerated the procedure well and left the operating room in good condition. MD JAVED Ellison/ALEYDA /5:23 PM /5:35 PM
[2017-04-24] MEDS ORDERED: HYDROmorphone HCL PCA 6 MG/30 ML IV SCH (18:15)
[2017-04-24 18:16] LABS: BICARBONATE 26.6 MEQ/L (21.0-32.0); CALCIUM 8.6 MG/DL (8.5-10.1); CREATININE 0.54 MG/DL (0.60-1.30)
[2017-04-24 20:00] VITALS: BP 109/69; PULSE 86; RESP 17; TEMP 97.2; O2SAT 95
[2017-04-24] MEDS: SODIUM CHLORIDE 0.9% FLUSH 10 ML FLUSH IV FLUSH SCH (20:20)
[2017-04-24] MEDS: REMOVE OLD NICODERM (NICOTINE) PATCH T-DERMAL SCH (21:00)
[2017-04-24] MEDS: PCA - TOTAL MG DILAUDID DELIVERED PER SHIFT SCH (22:00)
[2017-04-25] VITALS: BP 99/60; PULSE 71; RESP 17; TEMP 96.7; O2SAT 97
[2017-04-25] MEDS: D5-LR + KCL 20 MEQ INJ 1,000 ML IV SCH ×3 (02:29→22:03)
[2017-04-25 04:00] VITALS: BP 109/72; PULSE 74; RESP 16; TEMP 98.5; O2SAT 97
[2017-04-25] MEDS: METOCLOPRAMIDE HCL 10 MG/2 ML VIAL IVS SCH ×3 (05:07→16:37)
[2017-04-25] MEDS: PCA - TOTAL MG DILAUDID DELIVERED PER SHIFT SCH ×3 (05:07→22:00)
[2017-04-25] MEDS: ceFAZolin 2 GM PREMIX 50 ML IV SCH ×2 (05:08→13:29)
[2017-04-25 08:00] VITALS: BP 106/64; PULSE 70; RESP 16; TEMP 98; O2SAT 94
[2017-04-25] MEDS: metroNIDAZOLE 500 MG INJ 100 ML IV SCH ×2 (08:04→16:37)
[2017-04-25] MEDS: NICOTINE 21 MG/24 HR PATCH T-DERMAL SCH (08:05)
[2017-04-25] MEDS: FLUCONAZOLE 200 MG TAB PO SCH (08:05)
[2017-04-25] MEDS: PANTOPRAZOLE SODIUM 40 MG VIAL IVP SCH (08:05)
[2017-04-25] MEDS: REMOVE OLD NICODERM (NICOTINE) PATCH T-DERMAL SCH (08:05)
[2017-04-25] MEDS: SODIUM CHLORIDE 0.9% FLUSH 10 ML FLUSH IV FLUSH SCH (08:05)
[2017-04-25 08:41] LABS: AUTOMATED NEUTROPHIL # 17.2 TH/MM3 (1.8-7.7); BASOPHIL % 0.1 % (0.0-2.0); HEMATOCRIT 31.7 % (39.0-51.0); HEMOGLOBIN 10.4 GM/DL (13.0-17.0); LYMPH % 5.6 % (9.0-44.0); LYMPHOCYTE # 1.1 TH/MM3 (1.0-4.8); MEAN CELL VOLUME 87.4 FL (80.0-100.0); MEAN CORPUSCULAR HEMOGLOBIN 28.9 PG (27.0-34.0); MEAN PLATELET VOLUME 6.9 FL (7.0-11.0); MONO % 5.4 % (0.0-8.0); NEUT % 88.9 % (16.0-70.0); PLATELET COUNT 558 TH/MM3 (150-450); RED BLOOD COUNT 3.62 MIL/MM3 (4.50-5.90); RED CELL DISTRIBUTION WIDTH 13.5 % (11.6-17.2); WHITE BLOOD COUNT 19.3 TH/MM3 (4.0-11.0)
[2017-04-25 08:59] LABS: CALCIUM 8.3 MG/DL (8.5-10.1); CREATININE 0.54 MG/DL (0.60-1.30)
--- NOTE | 2017-04-25 10:31 | HHI.FF ---
Face to Face Verification Diagnosis: (1) Colostomy status (2) Squamous cell carcinoma of perineum Home Health Nursing Order: Medical education Signs/symptoms of disease process Wound care and dressing changes Nursing assessment with vital signs Instructions: Colostomy care and teaching I have seen patient Sam HancockJr on 04/25/17. My clinical findings support the need for the requested home health care services because: Ltd mobility - disease progression Deconditioned w/ increased weakness Med compliance is questionable Limited ability to care for self Need for psychosocial assistance High risk of falls I certify that my clinical findings support that this patient is homebound because: Post-op weakness Impaired cognitive ability/safety Hx COPD- exertion dyspnea/weakness Unsteady gait/balance Unable to use public transportation Iftikhar Longo MD Apr 25, 2017 10:31
--- NOTE | 2017-04-25 10:44 | HHI.PR ---
Subjective Remarks Surgery yesterday with fully diverting Loop Sigmoid Colostomy. Also finished excision of all gross condyloma/squamous cell cancer. Appreciate Dr Mendoza seeing patient and coming to the OR to review wound and excision with me. Objective Vital Signs Date Time Temp Pulse Resp B/P (MAP) Pulse Ox O2 Delivery O2 Flow Rate FiO2 04/25/17 08:00 98.0 70 16 106/64 (78) 94 04/25/17 05:07 16 04/25/17 04:00 98.5 74 16 109/72 (84) 97 04/25/17 00:00 96.7 71 17 99/60 (73) 97 04/24/17 22:00 14 04/24/17 20:00 97.2 86 17 109/69 (82) 95 04/24/17 18:30 97.7 81 20 128/69 (88) 99 Room Air 04/24/17 18:16 16 04/24/17 18:15 77 20 140/73 (95) 99 Room Air 04/24/17 18:00 80 20 138/70 (92) 99 Room Air 04/24/17 17:45 95 20 147/70 (95) 98 Room Air 04/24/17 17:25 97.7 95 20 152/63 (92) 100 Room Air 04/24/17 15:30 76 16 104/58 (73) 99 04/24/17 14:58 98.0 76 16 99/57 (71) 97 04/24/17 14:58 76 04/24/17 12:00 97.5 77 17 103/55 (71) 97 04/24/17 11:04 18 I/O 04/24/17 04/24/17 04/24/17 04/25/17 04/25/17 04/25/17 07:00 15:00 23:00 07:00 15:00 23:00 Intake Total 1720 ml 1600 ml 1040 ml Output Total 1225 ml 550 ml Balance 1720 ml 375 ml 490 ml Intake Oral 720 ml 0 ml 240 ml IV Total 1000 ml 800 ml Other 1600 ml Output Urine Total 1200 ml 550 ml Estimated Blood Loss 25 ml # Voids 2 # Bowel Movements 0 Result Diagram: 04/25/1753 04/25/17 0653 Objective Remarks VS-S Rectum: wide excision of deep Condyloma with invasive Squamous cell Carcinoma. Wet to dry dressings changed by me today including groins and under the scrotum. Reviewed with RNs and patient. All gross disease is excised. Assessment and Plan Assessment and Plan Stable POD#8/1- Invasive Squamous cell CA Continue Wound care wet to dry TID-RNs instructed Regular diet D/C mon and DISH ROOM WORKER tomorrow Face to Face done. Anticipate D/C in several days. ? Thursday/Thursday Iftikhar Longo MD Apr 25, 2017 10:44
[2017-04-25 12:00] VITALS: BP 113/63; PULSE 72; RESP 17; TEMP 97.6; O2SAT 97
[2017-04-25 16:00] VITALS: BP 119/69; PULSE 81; RESP 16; TEMP 98; O2SAT 97
[2017-04-25] MEDS: HEPARIN SODIUM - SQ 10,000 UNITS/ML VIAL SQ SCH (16:37)
[2017-04-25 20:00] VITALS: BP 111/65; PULSE 80; RESP 20; TEMP 98.4; O2SAT 92
[2017-04-26] VITALS: BP 95/51; PULSE 87; RESP 20; TEMP 98.8; O2SAT 96
[2017-04-26] MEDS: SODIUM CHLORIDE 0.9% FLUSH 10 ML FLUSH IV FLUSH SCH ×3 (00:06→21:00)
[2017-04-26] MEDS: METOCLOPRAMIDE HCL 10 MG/2 ML VIAL IVS SCH ×4 (00:07→17:25)
[2017-04-26 04:00] VITALS: BP 103/56; PULSE 80; RESP 20; TEMP 98.4; O2SAT 92
[2017-04-26] MEDS: HEPARIN SODIUM - SQ 10,000 UNITS/ML VIAL SQ SCH ×2 (05:58→16:06)
[2017-04-26] MEDS: PCA - TOTAL MG DILAUDID DELIVERED PER SHIFT SCH ×3 (05:58→22:00)
[2017-04-26 08:00] VITALS: BP 114/67; PULSE 80; RESP 16; TEMP 98.5; O2SAT 95
[2017-04-26] MEDS: FLUCONAZOLE 200 MG TAB PO SCH (08:06)
[2017-04-26] MEDS: PANTOPRAZOLE SODIUM 40 MG VIAL IVP SCH (08:06)
[2017-04-26] MEDS: oxyCODONE/ACETAMINOPHEN 5 MG/325 MG TAB PO PRN ×4 (08:06→22:42)
[2017-04-26] MEDS: REMOVE OLD NICODERM (NICOTINE) PATCH T-DERMAL SCH (08:07)
[2017-04-26] MEDS: NICOTINE 21 MG/24 HR PATCH T-DERMAL SCH (08:07)
[2017-04-26 08:21] LABS: AUTOMATED NEUTROPHIL # 16.1 TH/MM3 (1.8-7.7); BASOPHIL # 0.1 TH/MM3 (0-0.2); BASOPHIL % 0.3 % (0.0-2.0); EOSINOPHIL # 0.1 TH/MM3 (0-0.4); EOSINOPHIL % 0.3 % (0.0-4.0); HEMATOCRIT 29.1 % (39.0-51.0); HEMOGLOBIN 9.9 GM/DL (13.0-17.0); LYMPH % 10.4 % (9.0-44.0); LYMPHOCYTE # 2.1 TH/MM3 (1.0-4.8); MEAN CORPUSCULAR HEMOGLOBIN 29.6 PG (27.0-34.0); MEAN PLATELET VOLUME 6.8 FL (7.0-11.0); MONO % 9.7 % (0.0-8.0); NEUT % 79.3 % (16.0-70.0); PLATELET COUNT 623 TH/MM3 (150-450); RED BLOOD COUNT 3.35 MIL/MM3 (4.50-5.90); RED CELL DISTRIBUTION WIDTH 13.6 % (11.6-17.2); WHITE BLOOD COUNT 20.3 TH/MM3 (4.0-11.0)
[2017-04-26 08:42] LABS: BICARBONATE 28.8 MEQ/L (21.0-32.0); CALCIUM 8.1 MG/DL (8.5-10.1); CREATININE 0.48 MG/DL (0.60-1.30)
--- NOTE | 2017-04-26 10:46 | HHI.PR ---
Subjective Remarks Wound looked at and redressed yesterday. Instructions for TID changes explained to RNs. Dressing recently changed this AM. I will look at wound again tomorrow Objective Vital Signs Date Time Temp Pulse Resp B/P (MAP) Pulse Ox O2 Delivery O2 Flow Rate FiO2 04/26/17 09:06 16 04/26/17 08:00 98.5 80 16 114/67 (83) 95 04/26/17 05:58 20 04/26/17 04:00 98.4 80 20 103/56 (72) 92 04/26/17 00:00 98.8 87 20 95/51 (66) 96 04/25/17 22:00 18 04/25/17 20:00 98.4 80 20 111/65 (80) 92 04/25/17 16:00 98.0 81 16 119/69 (86) 97 04/25/17 13:31 14 04/25/17 12:00 97.6 72 17 113/63 (80) 97 I/O 04/25/17 04/25/17 04/25/17 04/26/17 04/26/17 04/26/17 07:00 15:00 23:00 07:00 15:00 23:00 Intake Total 1040 ml 150 ml 400 ml 720 ml Output Total 550 ml 2200 ml 750 ml Balance 490 ml 150 ml -1800 ml -30 ml Intake Oral 240 ml 300 ml 720 ml IV Total 800 ml 150 ml 100 ml Output Urine Total 550 ml 2200 ml 750 ml # Bowel Movements 0 Result Diagram: 04/26/17 0732 04/26/17 0732 Objective Remarks VS-S Rectum: wide excision of deep Condyloma with invasive Squamous cell Carcinoma. Reviewed with RNs and patient. All gross disease is excised. Assessment and Plan Assessment and Plan Stable POD#9/2- Invasive Squamous cell CA Continue Wound care wet to dry TID-RNs instructed Regular diet Face to Face done. Anticipate D/C in several days. ? Thursday/Thursday Will need some colostomy teaching priuor to D/C with Betsy Talavera RN Also will ask wound care to see him prior to D/C Iftikhar Longo MD Apr 26, 2017 10:46
[2017-04-26 12:00] VITALS: BP 97/52; PULSE 80; RESP 17; TEMP 97.6; O2SAT 94
[2017-04-26 16:00] VITALS: BP 105/66; PULSE 78; RESP 16; TEMP 98; O2SAT 95
[2017-04-26 20:00] VITALS: BP 98/58; PULSE 82; RESP 18; TEMP 97.8; O2SAT 94
[2017-04-27] VITALS: BP 102/59; PULSE 93; RESP 18; TEMP 98.5; O2SAT 93
[2017-04-27] MEDS: METOCLOPRAMIDE HCL 10 MG/2 ML VIAL IVS SCH ×4 (00:19→17:58)
[2017-04-27] MEDS: D5-LR + KCL 20 MEQ INJ 1,000 ML IV SCH ×2 (00:23→22:03)
[2017-04-27] MEDS: oxyCODONE/ACETAMINOPHEN 5 MG/325 MG TAB PO PRN ×4 (03:06→20:16)
[2017-04-27] MEDS: HEPARIN SODIUM - SQ 10,000 UNITS/ML VIAL SQ SCH ×2 (03:56→15:35)
[2017-04-27] MEDS: PCA - TOTAL MG DILAUDID DELIVERED PER SHIFT SCH ×3 (05:45→20:05)
[2017-04-27 08:00] VITALS: BP 98/56; PULSE 80; RESP 20; TEMP 98.3; O2SAT 96
--- NOTE | 2017-04-27 09:48 | HHI.PR ---
Subjective Remarks No complaints. Pt refusing showers. I have D/W him. Objective Vital Signs Date Time Temp Pulse Resp B/P (MAP) Pulse Ox O2 Delivery O2 Flow Rate FiO2 04/27/17 08:00 98.3 80 20 98/56 (70) 96 04/27/17 00:00 98.5 93 18 102/59 (73) 93 04/26/17 20:00 97.8 82 18 98/58 (71) 94 04/26/17 16:00 98.0 78 16 105/66 (79) 95 04/26/17 14:33 16 04/26/17 12:00 97.6 80 17 97/52 (67) 94 I/O 04/26/17 04/26/17 04/26/17 04/27/17 04/27/17 04/27/17 07:00 15:00 23:00 07:00 15:00 23:00 Intake Total 720 ml 1440 ml 1360 ml 120 ml Output Total 750 ml 950 ml 1190 ml 1300 ml Balance -30 ml -950 ml 250 ml 60 ml 120 ml Intake Oral 720 ml 1440 ml 360 ml 120 ml IV Total 1000 ml Output Urine Total 750 ml 950 ml 1170 ml 1300 ml Stool Total 20 ml Result Diagram: 04/26/1732 04/26/1732 Objective Remarks VS-S Rectum: wound fairly clean; explained showering and dressing changes to patient again. Assessment and Plan Assessment and Plan Stable POD#10/3- Invasive Squamous cell CA Continue Wound care wet to dry TID Regular diet Face to Face done. Anticipate D/C on Thursday Will need some colostomy teaching priuor to D/C with Betsy Talavera RN Also will ask wound care to see him prior to D/C Iftikhar Longo MD Apr 27, 2017 09:48
[2017-04-27] MEDS: NICOTINE 21 MG/24 HR PATCH T-DERMAL SCH (11:28)
[2017-04-27] MEDS: SODIUM CHLORIDE 0.9% FLUSH 10 ML FLUSH IV FLUSH SCH ×2 (11:29→20:06)
[2017-04-27] MEDS: FLUCONAZOLE 200 MG TAB PO SCH (11:29)
[2017-04-27] MEDS: PANTOPRAZOLE SODIUM 40 MG VIAL IVP SCH (11:29)
[2017-04-27 12:00] VITALS: BP 96/52; PULSE 80; RESP 19; TEMP 97.6; O2SAT 98
[2017-04-27 16:00] VITALS: BP 84/50; PULSE 80; RESP 20; TEMP 97.4; O2SAT 96
[2017-04-27 20:00] VITALS: BP 99/62; PULSE 97; RESP 16; TEMP 98.9; O2SAT 95
[2017-04-27] MEDS: REMOVE OLD NICODERM (NICOTINE) PATCH T-DERMAL SCH ×3 (20:10→21:00)
[2017-04-28] VITALS: BP 99/58; PULSE 97; RESP 16; TEMP 98.8; O2SAT 96
[2017-04-28] MEDS: oxyCODONE/ACETAMINOPHEN 5 MG/325 MG TAB PO PRN ×5 (00:07→23:53)
[2017-04-28] MEDS: METOCLOPRAMIDE HCL 10 MG/2 ML VIAL IVS SCH ×5 (00:07→23:49)
[2017-04-28 04:00] VITALS: BP 98/59; PULSE 94; RESP 16; TEMP 98; O2SAT 96
[2017-04-28] MEDS: PCA - TOTAL MG DILAUDID DELIVERED PER SHIFT SCH (05:02)
[2017-04-28] MEDS: HEPARIN SODIUM - SQ 10,000 UNITS/ML VIAL SQ SCH ×2 (05:08→16:48)
[2017-04-28 07:22] LABS: AUTOMATED NEUTROPHIL # 12.6 TH/MM3 (1.8-7.7); BASOPHIL # 0.1 TH/MM3 (0-0.2); BASOPHIL % 0.6 % (0.0-2.0); EOSINOPHIL # 0.6 TH/MM3 (0-0.4); EOSINOPHIL % 3.3 % (0.0-4.0); HEMATOCRIT 31.9 % (39.0-51.0); HEMOGLOBIN 10.7 GM/DL (13.0-17.0); LYMPH % 10.5 % (9.0-44.0); LYMPHOCYTE # 1.8 TH/MM3 (1.0-4.8); MEAN CELL VOLUME 86.2 FL (80.0-100.0); MEAN CORPUSCULAR HEMOGLOBIN 28.9 PG (27.0-34.0); MEAN CORPUSCULAR HGB CONC 33.5 % (32.0-36.0); MEAN PLATELET VOLUME 6.7 FL (7.0-11.0); MONO % 11.7 % (0.0-8.0); NEUT % 73.9 % (16.0-70.0); PLATELET COUNT 648 TH/MM3 (150-450); RED CELL DISTRIBUTION WIDTH 13.6 % (11.6-17.2)
[2017-04-28 07:48] LABS: BICARBONATE 28.4 MEQ/L (21.0-32.0); CALCIUM 8.5 MG/DL (8.5-10.1); CREATININE 0.51 MG/DL (0.60-1.30)
[2017-04-28 08:00] VITALS: BP 104/56; PULSE 83; RESP 16; TEMP 97.3; O2SAT 96
[2017-04-28] MEDS: SODIUM CHLORIDE 0.9% FLUSH 10 ML FLUSH IV FLUSH SCH ×2 (09:00→19:53)
[2017-04-28] MEDS: FLUCONAZOLE 200 MG TAB PO SCH (09:43)
[2017-04-28] MEDS: REMOVE OLD NICODERM (NICOTINE) PATCH T-DERMAL SCH (09:44)
[2017-04-28] MEDS: NICOTINE 21 MG/24 HR PATCH T-DERMAL SCH (09:44)
[2017-04-28] MEDS: PANTOPRAZOLE SODIUM 40 MG VIAL IVP SCH (09:45)
[2017-04-28] MEDS ORDERED: MAGNESIUM HYDROXIDE SUSP 30 ML CUP PO PRN (09:45)
--- NOTE | 2017-04-28 09:55 | HHI.PR ---
Subjective Remarks No complaints. Pt showering before dressing changes. Needs Stomal teaching prior to D/C. Objective Vital Signs Date Time Temp Pulse Resp B/P (MAP) Pulse Ox O2 Delivery O2 Flow Rate FiO2 04/28/17 08:00 97.3 83 16 104/56 (72) 96 04/28/17 04:00 98.0 94 16 98/59 (72) 96 04/28/17 00:00 98.8 97 16 99/58 (72) 96 04/27/17 20:00 98.9 97 16 99/62 (74) 95 04/27/17 16:00 97.4 80 20 84/50 (61) 96 04/27/17 12:00 97.6 80 19 96/52 (67) 98 I/O 04/27/17 04/27/17 04/27/17 04/28/17 04/28/17 04/28/17 07:00 15:00 23:00 07:00 15:00 23:00 Intake Total 1360 ml 120 ml 1466 ml 1556 ml Output Total 1300 ml 2600 ml 1800 ml Balance 60 ml 120 ml -1134 ml -244 ml Intake Oral 360 ml 120 ml 960 ml 1320 ml IV Total 1000 ml 506 ml 236 ml Output Urine Total 1300 ml 2600 ml 1800 ml # Bowel Movements 0 Result Diagram: 04/28/17 0640 04/28/17 0640 Objective Remarks VS-S Rectum: Wound fairly clean; removed old wet to dry dressings. Due for shower and dressing change now. Finishing breakfast. Abd: Stoma pink,some stool. Assessment and Plan Assessment and Plan Stable POD#11/4- Invasive Squamous cell CA Continue Wound care wet to dry Q8hrs Regular diet Face to Face done. Anticipate D/C on Thursday Will need some colostomy teaching priuor to D/C with Betsy Talavera RN Also will ask wound care to see him prior to D/C Iftikhar Longo MD Apr 28, 2017 09:55
[2017-04-28 12:00] VITALS: BP 117/62; PULSE 93; RESP 17; TEMP 97.6; O2SAT 95
[2017-04-28] MEDS: D5-LR + KCL 20 MEQ INJ 1,000 ML IV SCH (13:40)
--- NOTE | 2017-04-28 15:32 | PD.WCN.NOT ---
Wound Consult Description: Consult placed for New Ostomy Teaching LLQ colostomy per Dr Longo. Communicated with: Patient Recommendation: Empty pouch of effluent when 1/3-1/2 full Change appliance every 5-7 days and PRN for leaks Additional Information: Patient seen on [address] [place] [address] for ostomy assessment & teaching. Ostomy Type: Colostomy Surgeon: Iftikhar Longo MD Date of Surgery: Apr 24, 2017 Complete: Starter kit (Consent obtained for starter kit to be sent out ), Education materials ([employer] kit left at bedside earlier this am @ 1040 when patient was sleeping. Opened the kit this afternoon and went over contents with patient.) Educated patient on: Supplies available Stoma appearance Measuring stoma When to seek medical attention How to change appliance When to empty pouch Skin care Food Activities Additional information Patient seen on [facility] for ostomy assessment and teaching. Stoma is located on the left abdomen and functioning with brown stool noted in pouch. Appliance to be changed tomorrow morning @ 0930 by freelance writer with assistance from patient. Patient had no questions at this time. Patient was educated on the above. Barrier appears to be a cut to fit with a clear open ended pouch in place without leaks. Supplies to be ordered and obtained for tomorrows appliance change. There was stool covering stoma today and was not visualized by freelance writer. Stoma will be thoroughly assessed Thursday04/29/17 when barrier is removed. [facility]ets[facility]a [facility] Apr 28, 2017 15:32
[2017-04-28 16:00] VITALS: BP 95/53; PULSE 78; RESP 17; TEMP 97.8; O2SAT 97
[2017-04-28 20:00] VITALS: BP 108/61; PULSE 78; RESP 18; TEMP 98.7; O2SAT 95
[2017-04-29] VITALS: BP 100/56; PULSE 82; RESP 18; TEMP 98.7; O2SAT 96
--- NOTE | 2017-04-29 01:13 | PD.ONC.PN ---
Subjective Subjective Remarks Deferred note entry. Patient seen at bedside at 6 pm on 04/28/2017. He reports that he is learning how to take care of ostomy at home and looking forward to antipated discharge. Objective Data Date Time Temp Pulse Resp B/P (MAP) Pulse Ox O2 Delivery O2 Flow Rate FiO2 04/29/17 00:00 98.7 82 18 100/56 (71) 96 04/28/17 20:51 18 04/28/17 20:00 98.7 78 18 108/61 (77) 95 04/28/17 16:00 97.8 78 17 95/53 (67) 97 04/28/17 12:00 97.6 93 17 117/62 (80) 95 04/28/17 08:00 97.3 83 16 104/56 (72) 96 04/28/17 04:00 98.0 94 16 98/59 (72) 96 Result Diagram: 04/28/17 0640 04/28/17 0640 Laboratory Results Laboratory Tests Test 04/28/17 06:40 White Blood Count 17.0 TH/MM3 Red Blood Count 3.70 MIL/MM3 Hemoglobin 10.7 GM/DL Hematocrit 31.9 % Mean Corpuscular Volume 86.2 FL Mean Corpuscular Hemoglobin 28.9 PG Mean Corpuscular Hemoglobin Concent 33.5 % Red Cell Distribution Width 13.6 % Platelet Count 648 TH/MM3 Mean Platelet Volume 6.7 FL Neutrophils (%) (Auto) 73.9 % Lymphocytes (%) (Auto) 10.5 % Monocytes (%) (Auto) 11.7 % Eosinophils (%) (Auto) 3.3 % Basophils (%) (Auto) 0.6 % Neutrophils # (Auto) 12.6 TH/MM3 Lymphocytes # (Auto) 1.8 TH/MM3 Monocytes # (Auto) 2.0 TH/MM3 Eosinophils # (Auto) 0.6 TH/MM3 Basophils # (Auto) 0.1 TH/MM3 CBC Comment DIFF FINAL Differential Comment Blood Urea Nitrogen 13 MG/DL Creatinine 0.51 MG/DL Random Glucose 102 MG/DL Calcium Level 8.5 MG/DL Sodium Level 137 MEQ/L Potassium Level 3.7 MEQ/L Chloride Level 101 MEQ/L Carbon Dioxide Level 28.4 MEQ/L Anion Gap 8 MEQ/L Estimat Glomerular Filtration Rate 171 ML/MIN Administered Medications Medications (Trade) Dose Ordered Sig/Beba Route PRN Reason Start Time Stop Time Status Last Admin Dose Admin Nicotine (Habitrol 21 Mg Patch.24 Hr) 1 patch DAILY T-DERMAL 04/17/17 09:00 04/28/17 09:44 Miscellaneous Information 1 HS T-DERMAL 04/17/17 21:00 04/28/17 09:44 Oxycodone/ Acetaminophen (Percocet 5-325 Mg) 1 tab Q4H PRN PO PAIN SCALE 1 TO 5 04/21/17 11:15 04/28/17 23:53 Oxycodone/ Acetaminophen (Percocet 5-325 Mg) 2 tab Q4H PRN PO PAIN SCALE 6 TO 10 04/21/17 11:15 04/27/17 11:27 Fluconazole (Diflucan) 200 mg DAILY PO 04/24/17 09:00 04/28/17 09:43 Potassium Cl/ Dextrose/Lact Ringer's 1,000 ml @ 30 mls/hr Q24H IV 04/24/17 18:00 04/28/17 13:40 Sodium Chloride (NS Flush) 2 ml BID IV FLUSH 04/24/17 21:00 04/27/17 11:29 Pantoprazole Sodium (Protonix Inj) 40 mg DAILY IVP 04/25/17 09:00 04/28/17 09:45 Metoclopramide HCl (Reglan Inj) 10 mg Q6HR IVS 04/24/17 18:00 04/28/17 23:49 Heparin Sodium (Porcine) (Heparin Inj) 5,000 units Q12H SQ 04/25/17 16:00 04/28/17 16:48 Objective Remarks GENERAL: Well-nourished, well-developed patient. HEAD: Normocephalic. EYES: No scleral icterus. No injection or drainage. RESPIRATORY: No accessory muscle use. MUSCULOSKELETAL: Adequate muscle tone. NEUROLOGICAL: No obvious focal deficit. Awake, alert, and oriented x3. PSYCHIATRIC: Appropriate mood and affect; insight and judgment normal. Assessment/Plan Assessment 1. 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 Previous biopsy results with dysplasia in the setting of condyloma. Pathology from excision with invasive SCC. He is s/p ostomy. He will need chemotherapy/ radiation therapy once adequately healed from surgery. Will arrange for close follow up in oncology clinic. Jeri Peace MD Apr 29, 2017 01:13
[2017-04-29] MEDS: HEPARIN SODIUM - SQ 10,000 UNITS/ML VIAL SQ SCH (04:22)
[2017-04-29] MEDS: oxyCODONE/ACETAMINOPHEN 5 MG/325 MG TAB PO PRN ×3 (04:22→08:13)
[2017-04-29] MEDS: METOCLOPRAMIDE HCL 10 MG/2 ML VIAL IVS SCH (05:49)
[2017-04-29 08:00] VITALS: BP 100/58; PULSE 75; RESP 17; TEMP 97.6; O2SAT 97
[2017-04-29] MEDS: NICOTINE 21 MG/24 HR PATCH T-DERMAL SCH (08:07)
[2017-04-29] MEDS: SODIUM CHLORIDE 0.9% FLUSH 10 ML FLUSH IV FLUSH SCH (08:09)
[2017-04-29] MEDS: FLUCONAZOLE 200 MG TAB PO SCH (08:11)
[2017-04-29] MEDS: PANTOPRAZOLE SODIUM 40 MG VIAL IVP SCH (08:12)
--- NOTE | 2017-04-29 10:29 | PD.WCN.NOT ---
Wound Consult Description: Consult placed for New Ostomy Teaching LLQ colostomy per Dr Longo. Communicated with: Patient DAYANA Dominguez Recommendation: Empty pouch of effluent when 1/3-1/2 full Change appliance every 5-7 days and PRN for leaks Information given for free ostomy supplies through [email or web address] and pay only shipping Additional Information: Patient seen on for ostomy assessment, teaching, and appliance change. Ostomy Type: Colostomy Surgeon: Iftikhar Longo MD Date of Surgery: Apr 24, 2017 Complete: Starter kit (Starter kit sent via 2 day air today to arrive Thursday), Education materials (Con[employer] kit left at bedside earlier this am @ 1040 when patient was sleeping. Opened the kit this afternoon and went over contents with patient.), Rx (left on chart), Other (First ostomy appliance change with assistance of patient with mirror to visualize complete stoma and peristomal skin) Educated patient on: Stoma measurement and appearance Stoma size and appliance sizes are different Output consistency Appliances available in 2 piece moldable (in use) and cut to fit one piece ( provided) Open ended pouches Cleansing peristomal skin with water Using Cavilon skin prep if needed Allowing skin to dry prior to applying wafer Not using moisturizers or oils on the peristomal skin Change wafer every 5-7 days and PRN before leaks occur Empty pouch when 1/3-1/2 full Diet/Foods Showering Shaving with electric razor Support groups How to obtain supplies without insurance ([email or web address]) ConvaTec kit sent out today via 2 day air Additional information Patient seen @0930 for ostomy teaching, assessment, and appliance change using 2 1/4" moldable ConvaTec wafer and open ended pouch. Appliance in tact noted to left abdomen was removed using adhesive removal wipes. Stoma and peristomal skin was cleansed with moistened towel. Stoma was measured @ 1 1/4" red, moist, moderately protruding, oval, functioning with soft brown stool from lumen noted @ 6 o'clock. Mucocutaneous junction is noted with circumferential sutures, otherwise unremarkable. Peristomal skin is noted with shaved hair growing in otherwise unremarkable. Peristomal skin was allowed to dry and then skin prepped using Cavilon skin barrier film. Moldable ConvaTec wafer size 2 1/4" obtained and applied by travel writer with patient holding mirror for visualization during entire appliance change. Patient closed the end of the pouch with travel writer observing and then checking closure for leaks. All questions were answered. DAYANA Dominguez entered room during appliance change. Betsy Talavera [facility] Apr 29, 2017 10:29
== END 2017-04-29 11:44 | disposition home health service (06) | DRG 572 ==
LOC: HSDC 10:58 → N07B 18:19 → OBSVTOIN 04-23 09:49
PROVIDERS: ADMIT Colon & Rectal Surgery; ATTEND Colon & Rectal Surgery
PROC: 0JBB0ZZ Excision of Perineum Subcutaneous Tissue and Fascia, Open Approach (ICD-10-PCS; principal; 2017-04-23)
PROC: 0JBB0ZZ Excision of Perineum Subcutaneous Tissue and Fascia, Open Approach (ICD-10-PCS; 2017-04-24)
PROC: 0D1N0Z4 Bypass Sigmoid Colon to Cutaneous, Open Approach (ICD-10-PCS; 2017-04-24 15:35)
DX: C44.520 Squamous cell carcinoma of anal skin (principal); A63.0 Anogenital (venereal) warts; F17.210 Nicotine dependence, cigarettes, uncomplicated; Z88.5 Allergy status to narcotic agent
CPT/HCPCS: 74174; 80048; 85007; 85025; 85027; 85610; 86850; 86900; 86901; 88304; 88305; 88307; 94150; 94640; 96361; 96365; 96366; 96372; 96375; 99222; C9113; G0378; J0131; J0690; J1100; J1170; J1644; J2175; J2250; J2405; J2710; J2765; J3010; J3480; J7120; J7613; Q9967

== ENCOUNTER → 2017-07-09 | Day surgery (SDC) | payer OTHER ==
[~2017-07-09] VITALS: Ht 182.9 cm; Wt 73.4 kg
[~2017-07-09] MED LIST changes: +ACETAMINOPHEN 1000 MG/100 ML 100 ML IV ONE; +ACETAMINOPHEN/HYDROcodone 325 MG/5 MG TAB PO PRN; +BACITRACIN TOP OINT 15 GM TUBE ONE; +CHLORHEXIDINE GLUCONATE 2 % 1 PACK (2 CLOTHS) TOPICAL PRN; +DEXAMETHASONE SOD PHOS 4 MG/ML VIAL IV ONE; +DO NOT ADM ANY ANTICOAGULANT DRUGS PRN; +FAMOTIDINE 20 MG/2 ML VIAL ONE; -IBUP200T47 PO; +INSULIN HUMAN REGULAR 1,000 UNITS/10 ML VIAL SQ PRN; +LACTATED RINGER'S 1000 ML IV PRN; +LIDOCAINE 0.5%/EPINEPHrine 1:200,000 SOLN 50 ML VIAL ONE; +LIDOCAINE HCL 1% PF 5 ML SYRINGE OTHER ONE; +METOPROLOL TARTRATE 25 MG TAB PO PRN; +MIDAZOLAM HCL 2 MG/2 ML VIAL ONE; -PERC5TAB12 PO; +POVIDONE IODINE 5% (ANTISEPSIS KIT) 4 APPLICATIONS EACH NARE PRN; +PROPOFOL 200 MG/20 ML AMP IV ONE; +SODIUM CHLORID 0.9% 500 ML IV PRN; +ceFAZolin INJ 1,000 MG VIAL IV ONE
[2017-07-09 11:52] LABS: AUTOMATED NEUTROPHIL # 7.1 TH/MM3 (1.8-7.7); BASOPHIL # 0.1 TH/MM3 (0-0.2); BASOPHIL % 0.6 % (0.0-2.0); EOSINOPHIL # 0.4 TH/MM3 (0-0.4); EOSINOPHIL % 3.9 % (0.0-4.0); HEMATOCRIT 40.4 % (39.0-51.0); HEMOGLOBIN 13.5 GM/DL (13.0-17.0); LYMPH % 15.5 % (9.0-44.0); LYMPHOCYTE # 1.6 TH/MM3 (1.0-4.8); MEAN CELL VOLUME 87.4 FL (80.0-100.0); MEAN CORPUSCULAR HEMOGLOBIN 29.3 PG (27.0-34.0); MEAN CORPUSCULAR HGB CONC 33.5 % (32.0-36.0); MONO % 12.2 % (0.0-8.0); MONOCYTE # 1.3 TH/MM3 (0-0.9); NEUT % 67.8 % (16.0-70.0); PLATELET COUNT 321 TH/MM3 (150-450); RED BLOOD COUNT 4.62 MIL/MM3 (4.50-5.90); RED CELL DISTRIBUTION WIDTH 15.6 % (11.6-17.2); WHITE BLOOD COUNT 10.5 TH/MM3 (4.0-11.0)
[2017-07-09 15:06] VITALS: BP 113/66; PULSE 70; RESP 20; TEMP 98.3; O2SAT 99
--- NOTE | 2017-07-09 15:48 | MP ---
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 PROCEDURE PERFORMED: Excision of small recurrent condyloma and squamous cell carcinomas with punch biopsies of squamous carcinoma of the perineum. ANESTHESIA: Monitored anesthesia care and local 1.5% Xylocaine with epinephrine. SURGEON: Dr. Longo. ESTIMATED BLOOD LOSS: Minimal. OPERATIVE FINDINGS: This patient had a massive resection of his perineum approximately 3 months ago in 2 stages. Basically, he had a massive condyloma with invasive squamous cell carcinoma of the perianal region and buttocks that was excised extensively, essentially leaving only an anal canal. This lesion biopsied as invasive squamous cell carcinoma and over the last several months has healed well, although it has become quite firm and there are 2 recurrent lesions on the right lateral and left lateral along the skin edges. For this reason, we recommended radiation therapy and chemotherapy; however, they have been waiting for further healing of the wound prior to that and wanted to further biopsies of the wound. For this reason, he was brought in for punch biopsies and excision of these 2 recurrent lesions. OPERATIVE TECHNIQUE: The patient was placed on the table in the supine position. After adequate monitored anesthesia care and local, 1.5% Xylocaine with epinephrine infiltrated locally. The legs were placed in exaggerated lithotomy position and the perineum was prepped and draped in the usual manner. The right and left lesions along the skin were approximately 1 cm to 2 cm in size, and they were excised full thickness with electrocautery. The remainder of the lesion was quite firm and multiple punch biopsies were taken. In the left anterior region up toward the groin, there was an ulceration, which was consistent with residual or recurrent squamous cell carcinoma and a portion of this was excised as well. Digital exam was done of the anus and was quite strictured due to the lack of anoderm and excision of all the perianal skin. Once this was completed, Monsel solution was used on the wound and dressings were applied. Sponge, needle, instrument counts were reported as correct. Estimated blood loss was minimal. The patient tolerated the procedure well and left the operating room in good condition. MD DAAN Ellison , 03:10 PM , 03:47 PM [place]
== END | disposition home or self-care (01) ==
LOC: HSDC 10:58
PROVIDERS: ATTEND Colon & Rectal Surgery
DX: C21.1 Malignant neoplasm of anal canal (principal); A63.0 Anogenital (venereal) warts
CPT/HCPCS: 00902; 46924; 85025; 88305; J0131; J0690; J1100; J2250; J3010; J7120; 88304

== ENCOUNTER 2017-08-19 06:08 | Day surgery (SDC) | payer MEDICAID ==
[~2017-08-19] VITALS: Ht 182.9 cm; Wt 72.7 kg
[2017-08-19 06:48] VITALS: BP 110/64; PULSE 85; RESP 20; TEMP 97.7; O2SAT 93
[2017-08-19] MEDS ORDERED: ceFAZolin 2 GM PREMIX 50 ML - implanted port/tunneled catheter insertion IV SCH (07:00)
[2017-08-19] MEDS ORDERED: SODIUM CHLORIDE 0.9% 1000 ML IV SCH (07:00)
[2017-08-19] MEDS ORDERED: POVIDONE IODINE 5% (ANTISEPSIS KIT) 4 APPLICATIONS EACH NARE SCH (07:00)
[2017-08-19] MEDS ORDERED: CHLORHEXIDINE GLUCONATE 2 % 1 PACK (2 CLOTHS) TOPICAL SCH (07:00)
[2017-08-19] MEDS ORDERED: VANCOMYCIN 1000 MG/NS 250 ML - implanted port/tunneled catheter IV SCH ×2 (07:00)
[2017-08-19 07:14] LABS: PROTHROMBIN TIME - PATIENT 9.7 SEC (9.8-11.6)
[2017-08-19] MEDS ORDERED: MIDAZOLAM HCL 2 MG/2 ML VIAL ONE ×2 (07:34→08:11)
[2017-08-19] MEDS ORDERED: LIDOCAINE 1%/EPINEPHrine 1:100,000 SOLN 30 ML VIAL ONE (07:42)
[2017-08-19 08:50] VITALS: BP 95/54; PULSE 77; RESP 18; TEMP 97.9; O2SAT 91
[2017-08-19 09:05] VITALS: BP 87/55; PULSE 74; RESP 17; O2SAT 92
[2017-08-19 09:35] VITALS: BP 109/56; PULSE 74; RESP 18; O2SAT 95
[2017-08-19 10:05] VITALS: BP 100/56; PULSE 73; RESP 17; O2SAT 96
[2017-08-19 10:35] VITALS: BP 98/57; PULSE 78; RESP 18; O2SAT 98
--- NOTE | 2017-08-19 10:57 | PD.RAD ---
Post Procedure Progress Note Pre Procedure Diagnosis: (1) Squamous cell carcinoma of perineum Post Procedure Diagnosis: (1) Squamous cell carcinoma of perineum Procedure Date: Aug 19, 2017 Supervising Radiologist: Dajuan Granda Proceduralist/Assist: RT Amber(R) Anesthesia: Conscious Sedation Plan of Activity Patient to Unit: ROPU Patient Condition: Good See PACS Report for procedural detail/treatment Central Venous Access Device Procedure 1 Right Internal Jugular Infusaport Placement single lumen Dajuan Granda MD Aug 19, 2017 10:57
[2017-08-19] MEDS ORDERED: SODIUM CHLORIDE 0.9% FLUSH 10 ML FLUSH IVF PRN (11:00)
--- NOTE | 2017-08-19 12:29 | RADRPT ---
EXAM DATE/TIME: 08/19/2017 08:32 [place] COMPARISON: No previous studies available for comparison. INDICATIONS : Patient presents with anal cancer in need of port placement for chemotherapy. MEDICAL HISTORY : Anal cancer Bronchitis Esophagitis SURGICAL HISTORY : Excision of condyloma L inguinal node biopsy Colostomy Anal lesion BX Hernia repair ENCOUNTER: Initial ACUITY: 1 year PAIN SCORE: 0/10 LOCATION: N/A FLUORO TIME: 0.36 minutes IMAGE SERIES: 1 SEDATION TIME: 30 minutes ACCESS: Right internal jugular vein SEDATION: 1.) 3 mg midazolam (Versed) IV 2.) 150 mcg fentanyl (Sublimaze) IV Prophylactic antibiotics were administered with appropriate pre-procedure timing. Vancomycin within 2 hours of procedure, Ancef (or alternative) within 1 hour of procedure. DEVICE: 1. 8 Japanese single lumen Bio Nando Port PROCEDURE : 1. Continuous pulse oximetry and EKG monitoring. 2. Intravenous conscious sedation. 3. Ultrasound guidance for venous access. 4. Fluoroscopic guided implantable central venous port placement. The patient was placed supine. The neck was prepped in sterile fashion. Full sterile technique was u sed, including cap, mask, sterile gloves and gown, and a large sterile sheet. Hand hygiene and 2% ch lorhexidine Betadine was utilized per protocol for cutaneous antisepsis with appropriate dry time for site. Sterile gel and sterile probe cover were utilized for ultrasound guidance. The skin and sub cutaneous tissues were infiltrated with local anesthetic solution. Under direct ultrasound guidance, central venous access was accomplished in the targeted vessel. The ultrasound images depicting access guidance were stored and saved to PACS for permanent record. A s ubcutaneous pocket was created using blunt dissection. The port was introduced to the pocket. The c atheter tubing was fed through a subcutaneous tunnel to the venotomy site. The catheter tubing was c ut to a suitable length and then was introduced through a valved Peel-Away sheath and positioned with catheter tubing tip at the cavo-atrial junction level. The pocket incision was closed with subcutic ular Vicryl suture. Steri-Strips were applied. The port was flushed and locked with heparin solutio n per protocol. Sterile dressing was applied to the site. The patient tolerated the procedure well. Conscious sedation was performed with the prescribed dosages and duration as above in the presence of an independent trained radiology nurse to assist in the monitoring of the patient. EKG and oximetry remained stable throughout the procedure. The patient tolerated the procedure well and there were no complications. The patient was sent to post anesthesia recovery in stable condition. CONCLUSION: Uncomplicated ultrasound and fluoroscopic guided implanted central venous port catheter placement as described in detail above. An 8 Japanese Power port was placed. Dajuan Granda MD on August 19, 2017 at 12:26 Board Certified Radiologist. This report was verified electronically.
== END 2017-08-19 11:00 | disposition home or self-care (01) ==
LOC: HROP 06:08 → HRIP 06:11 → HROP 11:00
PROVIDERS: ATTEND Internal Medicine
DX: Z45.2 Encounter for adjustment and management of vascular access device (principal); C21.0 Malignant neoplasm of anus, unspecified; C76.3 Malignant neoplasm of pelvis
CPT/HCPCS: 36561; 76937; 77001; 85610; 85730; 99152; 99153; C1788; J0690; J1642; J2250; J3010; J3370; J7030; J7050